=== PATIENT | male | born 1940 ===

== ENCOUNTER 2023-07-04 14:56 | Emergency (ER) | payer MEDICARE, BC, SELFPAY ==
[2023-07-04 15:00] VITALS: BP 136/53
--- NOTE | 2023-07-04 16:15 | ED.GENMED ---
History of Present Illness
General
Chief Complaint: Nose Bleed
Source: patient
Exam Limitations: none
Time Seen by Provider: 07/04/23 15:53
Nursing documentation reviewed up to this point in time: agreed with
Travel History
Have you had any contact with someone who has COVID-19?: No
Do you have any symptoms of coronavirus? Fever > 100 degrees, chills, cough, shortness of breath, sore throat, loss of taste or smell, muscle aches, or headache?: No
History of Present Illness
History of Present Illness:
83 yr old male on Plavix presents to the ED for evaluation of right sided nose bleed since this morning. Pt believes now that nosebleed has stopped. Denies any trauma/injury. He denies any headache lightheadedness dizziness patient is on Aspirin
and Plavix.
reports the patient was started on Plavix again after having a TIA. Patient was admitted June 08 to June 10.
Past History
Past History
ED Past Medical History: Arrthythmia (Exercise-induced V. tach), CAD, CHF, GERD, HTN, Hypercholesterolemia, NIDDM, Hypothyroidism and Other (Multiple pulmonary nodules, moderate obstructive sleep apnea, right internal carotid artery 70% stenosis);
Negative Renal failure (Stage 3A)
ED Past Surgical History: Cardiac (Pacemaker, CABG X 4, Stents, TAVR), Tonsilectomy and Other
Social History
Tobacco: Non-smoker
Alcohol: None
Drug: None
Personal:
Living: with family
Family History
Family History: Other (reviewed and non-contributory)
Review of Systems
Review of Systems
Allergies reviewed?: Yes
Other source history: family
All Other Systems: ROS reviewed and negative except as documented in HPI and ROS
Constitutional: Reports no symptoms; Denies fever, fatigue or chills
EENT: Reports other (epistaxis right sided)
Respiratory: Reports no symptoms
Cardiac: Reports no symptoms
ABD/GI: Reports no symptoms
Musculoskeletal: Reports no symptoms
Skin: Reports no symptoms
Neurological: Reports no symptoms
Psychiatric: Reports no symptoms
Phy Exam
General Physical Exam
General Presentation: no apparent distress
General age: appears stated age
General Skin: warm and dry
General Habitus: normal
General Mental: alert
General Hydration: appears well hydrated
ENT Exam
ENT Exam: other (bright red blood in right nares no active bleeding )
Neurological Exam
Neurological Exam: alert and oriented x3
Musculoskeletal Exam
Musculoskeletal Exam: full ROM
Skin Exam
Skin Exam: normal color and warm/dry
Psychiatric Exam
Psychiatric Exam: normal mood/affect
Course
Vital Signs
Initial and Last Documented VS:
Initial Vital Signs
Temp Pulse Resp BP
98.2 F 63 18 136/53
07/04/23 15:00 07/04/23 15:00 07/04/23 15:00 07/04/23 15:00
Last Documented Vital Signs
Temp Pulse Resp BP
98.2 F 63 18 136/53
07/04/23 15:00 07/04/23 15:00 07/04/23 15:00 07/04/23 15:00
MDM/Problems Addressed
Differential Diagnosis Includes:
Not limited to epistaxis
MDM/Problems Addressed:
Patient has not had any further episodes of bleeding here in the ER. There is no 1 actual spot which was identified as the site of bleeding therefore cauterization was not done. Patient no acute distress well-appearing denies feeling
lightheaded/dizzy. stable vital sings. with no bleeding will DC home. I did review with patient the importance of continuing Plavix and aspirin since he recently had a TIA 2 weeks ago and was admitted for that time. He was instructed on not
blowing his nose how to apply pressure and to return if any worsening of symptoms with ENT follow-up.
*Critical Care Note
Total Time (30-74mins, 75-104mins- exclusive of procedures): Not Applicable
ED Attending Note
-
Portions of this chart may have been created with voice recognition software.� Occasional wrong word or��sound alike� substitutions may have occurred due to the inherent limitations of voice recognition software.
Discharge Plan
Departure
Patient Disposition: Home (Routine Discharge)
Date of Disposition: 07/04/23
Time of Disposition: 17:15
Patient with high blood pressure during this ER visit?: Yes
Condition: Fair
Covid-19: Not Applicable
Discharge Problem:
epistaxis
Instructions: Nosebleeds (DC), BLOOD PRESSURE
Prescriptions:
No Action
nitroglycerin 0.4 MG tablet, sublingual
0.4 mg sublingual [id number] PRN (Reason: chest pain)
ezetimibe 10 MG tablet
10 mg PO QPM
aspirin 81 MG tablet,delayed release (DR/EC)
81 mg PO HS Qty: 0 0RF
isosorbide mononitrate 30 mg Tablet Extended Release 24 Hr
15 mg PO DAILY
famotidine 20 mg Tablet
20 mg PO DAILY
pantoprazole 40 mg Tablet,Delayed Release (Dr/Ec)
40 mg PO HS
docusate sodium 100 mg Capsule
100 mg PO DAILY
albuterol sulfate 90 mcg/actuation Hfa Aerosol Inhaler
2 puff inhalation R Q4HPRN PRN (Reason: SHORTNESS OF BREATH) Qty: 6.7 0RF
metoprolol succinate 25 MG tablet extended release 24 hr
25 mg PO HS Qty: 0 0RF
furosemide 40 mg tablet
20 mg PO DAILY
atorvastatin 40 mg tablet
20 mg PO QPM
triamcinolone acetonide 0.1 % cream
1 applic TOPICAL DAILY PRN (Reason: sores on chest)
levothyroxine [Synthroid] 50 mcg tablet
100 mcg PO CHAVEZ
levothyroxine [Synthroid] 50 mcg tablet
50 mcg PO MOTUWETHFRSA
fluticasone propion-salmeterol [Advair HFA] 230-21 mcg/actuation HFA aerosol inhaler
2 puff inhalation R BID
colchicine 0.6 MG capsule
0.6 mg PO BIDPRN PRN (Reason: gout)
Patient Comments:
pt states he last took this rx in 2019.
clopidogrel [Plavix] 75 mg tablet
75 mg PO DAILY Qty: 18 0RF
Rx Instructions:
STOP AFTER 18 DAYS
Referrals:
NONE,* [Active] -
Tegan Stoner MD [Active] -
Activity Restrictions/Additional Instructions:
As discussed follow-up with clear coat sprayer if needed. Do not blow your nose. If bleeding recurs hold pressure for 10 to 15 minutes at least however if you are unable to stop the bleeding then please return to the ER.
Interventions
Interventions:
*Risk Screen - Suicide Last Done: 07/04/23 15:00
*General Assessment Last Done: 07/04/23 15:00
*Neglect/Abuse Screening Last Done: 07/04/23 15:00
*ED COVID-19 Vaccine History Last Done: 07/04/23 15:00
*Nursing Disposition Last Done: 07/04/23 17:34
ED-EENT Assessment Last Done: 07/04/23 15:45
Discharge Date and Time
Discharge Date/Time: 07/04/23 17:34
== END 2023-07-04 17:34 | disposition home or self-care (01) ==
LOC: EMR 14:56
PROVIDERS: EMERGENCY PHYSICIAN Emergency Medicine; FAMILY PHYSICIAN Family Medicine
DX: R04.0 Epistaxis (principal); I10 Essential (primary) hypertension; Z79.02 Long term (current) use of antithrombotics/antiplatelets
CPT/HCPCS: 99281

== ENCOUNTER → 2023-07-08 14:10 | Outpatient (REF) | payer MEDICARE, BC, SELFPAY | LOC: RAD 14:10 | PROVIDERS: ATTENDING PHYSICIAN Radiology Diagnostic Radiology; FAMILY PHYSICIAN Family Medicine | DX: Z95.0 Presence of cardiac pacemaker (principal) | CPT/HCPCS: 71046 ==

== ENCOUNTER 2023-07-21 18:07 | Emergency (ER) | payer MEDICARE, BC, SELFPAY ==
[2023-07-21 18:12] VITALS: BP 101/70
--- NOTE | 2023-07-21 22:21 | ED.GENMED ---
History of Present Illness
General
Chief Complaint: Nose Bleed
Source: patient and family
Time Seen by Provider: 07/21/23 20:34
Travel History
Have you had any contact with someone who has COVID-19?: No
Do you have any symptoms of coronavirus? Fever > 100 degrees, chills, cough, shortness of breath, sore throat, loss of taste or smell, muscle aches, or headache?: No
History of Present Illness
History of Present Illness:
83-year-old male presents emergency department complaints of nosebleed, from the left nare only, that started around 130 today and has been present on and off since then. He describes applying the clip and now the bleeding has been controlled. He
denies dizziness, chest pain, dyspnea, nausea, vomiting, black stools, gum bleeding, hematemesis, or other complaints. Of note, patient is on aspirin and Plavix given recent neurological events.
Past History
Past History
ED Past Medical History: Arrthythmia (Exercise-induced V. tach), CAD, CHF, GERD, HTN, Hypercholesterolemia, NIDDM, Hypothyroidism and Other (Multiple pulmonary nodules, moderate obstructive sleep apnea, right internal carotid artery 70% stenosis);
Negative Renal failure (Stage 3A)
ED Past Surgical History: Cardiac (Pacemaker, CABG X 4, Stents, TAVR), Tonsilectomy and Other
Social History
Tobacco: Non-smoker
Alcohol: None
Drug: None
Personal:
Living: with family
Family History
Family History: Other (reviewed and non-contributory)
Phy Exam
Physical Exam
Physical Exam:
GENERAL: Alert , in no apparent distress
EYE: pupils equal and reactive
NECK: Supple, no significant adenopathy.
ENT: o/p clr, mmm. R septum nl, no bleeding. L nare with slow ooze (once clip removed), uanble fully visualize septum
CARDIAC: Regular rate and rhythm .
LUNGS: Clear breath sounds bilaterally, no acute respiratory distress, no wheezes/rales/rhonchi
ABDOMEN: Soft, without focal tenderness, no r/g, no cvat
NEUROLOGICAL: Alert and oriented, nonfocal
SKIN: Warm and dry, skin intact.
MUSCULOSKELETAL: No edema, well perfused.
PSYCH: Normal and appropriate interaction.
Course
Vital Signs
Initial and Last Documented VS:
Initial Vital Signs
Temp Pulse Resp BP Pulse Ox
98.4 F 64 18 101/70 94
07/21/23 18:12 07/21/23 18:12 07/21/23 18:12 07/21/23 18:12 07/21/23 18:12
Last Documented Vital Signs
Temp Pulse Resp BP Pulse Ox
98.4 F 60 18 153/76 94
07/21/23 18:12 07/21/23 22:57 07/21/23 18:12 07/21/23 22:57 07/21/23 18:12
*Critical Care Note
Total Time (30-74mins, 75-104mins- exclusive of procedures): Not Applicable
Update Note
Update Note:
Patient presents to the Emergency Department with ___epistaxis
Number and Complexity of Problems Addressed at the Encounter
� Chronic conditions affecting care:
� Acute Exacerbation and/or Progression of Chronic Illness:
� Differential Diagnosis includes: But not limited to anterior epistaxis, posterior epistaxis, medication related bleeding, etc.
Amount and/or Complexity of Data to be Reviewed and Analyzed
� I performed an independent evaluation of and my interpretation is:
EKG:
CT:
Xrays:
Laboratory Studies:
Other:
� Review of other/old records reveals:
� Clinical information was obtained by an independent historian: Son who is at bedside
� Prescriptions/Medications Considered but not given:
� Further testing considered but not performed:
Risk of Complications and/or Morbidity or Mortality of Patient Management
� Social determinants of health affecting care:
� Discussion with other providers (PCP, Hospitalists, Consultants, etc):
� Escalation of care including admission/observation vs risk of discharge considered: Left nare gently packed with a Rhino Rocket, bleeding well-controlled, will discharge with close ENT follow-up. Patient aware of importance of
continuing Plavix and aspirin.
ED Attending Note
-
Portions of this chart may have been created with voice recognition software.� Occasional wrong word or��sound alike� substitutions may have occurred due to the inherent limitations of voice recognition software.
Discharge Plan
Departure
Patient Disposition: Home (Routine Discharge)
Date of Disposition: 07/21/23
Time of Disposition: 22:24
Patient with high blood pressure during this ER visit?: No
Condition: Good
Discharge Problem:
Anterior epistaxis
Instructions: Nosebleeds (DC)
Prescriptions:
New
cephalexin 500 mg capsule
500 mg PO TID Qty: 15 0RF
No Action
nitroglycerin 0.4 MG tablet, sublingual
0.4 mg sublingual [id number] PRN (Reason: chest pain)
ezetimibe 10 MG tablet
10 mg PO QPM
aspirin 81 MG tablet,delayed release (DR/EC)
81 mg PO HS Qty: 0 0RF
isosorbide mononitrate 30 mg Tablet Extended Release 24 Hr
15 mg PO DAILY
famotidine 20 mg Tablet
20 mg PO DAILY
pantoprazole 40 mg Tablet,Delayed Release (Dr/Ec)
40 mg PO HS
docusate sodium 100 mg Capsule
100 mg PO DAILY
albuterol sulfate 90 mcg/actuation Hfa Aerosol Inhaler
2 puff inhalation R Q4HPRN PRN (Reason: SHORTNESS OF BREATH) Qty: 6.7 0RF
metoprolol succinate 25 MG tablet extended release 24 hr
25 mg PO HS Qty: 0 0RF
furosemide 40 mg tablet
20 mg PO DAILY
atorvastatin 40 mg tablet
20 mg PO QPM
triamcinolone acetonide 0.1 % cream
1 applic TOPICAL DAILY PRN (Reason: sores on chest)
levothyroxine [Synthroid] 50 mcg tablet
100 mcg PO CHAVEZ
levothyroxine [Synthroid] 50 mcg tablet
50 mcg PO MOTUWETHFRSA
fluticasone propion-salmeterol [Advair HFA] 230-21 mcg/actuation HFA aerosol inhaler
2 puff inhalation R BID
colchicine 0.6 MG capsule
0.6 mg PO BIDPRN PRN (Reason: gout)
Patient Comments:
pt states he last took this rx in 2019.
clopidogrel [Plavix] 75 mg tablet
75 mg PO DAILY Qty: 18 0RF
Rx Instructions:
STOP AFTER 18 DAYS
Referrals:
Heather Penn DO [Family Provider] -
Tegan Stoner MD [Active] - Follow up in 2-3 days
Activity Restrictions/Additional Instructions:
IF YOU DEVELOP FEVER, CHILLS, BLEEDING, DIZZINESS, CHEST PAIN, TROUBLE BREATHING, OR OTHER WORRISOME SIGNS, GO TO THE ER IMMEDIATELY!
Interventions
Interventions:
*Risk Screen - Suicide Last Done: 07/21/23 18:12
*General Assessment Last Done: 07/21/23 18:12
*Neglect/Abuse Screening Last Done: 07/21/23 18:12
*ED COVID-19 Vaccine History Last Done: 07/21/23 18:12
*Nursing Disposition Last Done: 07/21/23 22:57
ED-EENT Assessment Last Done: 07/21/23 20:22
Discharge Date and Time
Discharge Date/Time: 07/21/23 22:57
[2023-07-21 22:55] VITALS: BP 155/76
[2023-07-21 22:57] VITALS: BP 153/76
== END 2023-07-21 22:57 | disposition home or self-care (01) ==
LOC: EMR 18:07
PROVIDERS: EMERGENCY PHYSICIAN Emergency Medicine; FAMILY PHYSICIAN Family Medicine
DX: R04.0 Epistaxis (principal)
CPT/HCPCS: 99282; 30901

== ENCOUNTER → 2023-07-22 13:09 | Outpatient (REF) | payer MEDICARE, BC, SELFPAY | LOC: MRI 13:09 | PROVIDERS: ATTENDING PHYSICIAN Hospitalist; FAMILY PHYSICIAN Family Medicine; REFERRING PHYSICIAN Student in an Organized Health Care Education/Training Program | DX: G45.9 Transient cerebral ischemic attack, unspecified (principal) | CPT/HCPCS: 70551 ==

== ENCOUNTER 2023-08-14 21:08 | Inpatient (IN) | payer MEDICARE, BC, SELFPAY ==
[2023-08-14 18:09] VITALS: BP 114/51
[2023-08-14 18:12] VITALS: BP 114/51
[2023-08-14 18:24] VITALS: BMI 32.0
[2023-08-14 18:54] LABS: % Basophils 0.3 % (0-2); % Eosinophils 0.3 % (0-6); % Immature Granulocytes 0.5 % (0-0.5); % Lymphocytes 7.2 % (20.5-51.1); % Monocytes 10.5 % (1.7-9.3); % Neutrophils 81.2 % (42.2-75.2); Absolute Basophils 0.1 10^3/uL (0-0.2); Absolute Eosinophils 0.1 10^3/uL (0-0.7); Absolute Immature Granulocytes 0.1 10^3/uL (0-0.05); Absolute Lymphocytes 1.1 10^3/uL (1.2-3.4); Absolute Monocytes 1.6 10^3/uL (0.1-0.6); Absolute Neutrophils 12.3 10^3/uL (1.4-6.5); Hematocrit 31.5 % (39.0-52.0); Mean Corp Hgb Conc. 31.7 g/dL (33.0-37.0); Mean Corpuscular Hgb 31.5 pg (27.0-31.0); Mean Corpuscular Volume 99.4 fL (80.0-94.0); Nucleated Red Blood Cells % 0.1 % (-); Platelet Count 134 10^3/uL (130-400); Red Blood Cell Count 3.17 10^6/uL (4.70-6.10); Red Cell Dist. Width 17.2 % (11.5-14.5); White Blood Cell Count 15.2 10^3/uL (4.8-10.8)
[2023-08-14 19:00] VITALS: BP 92/50
[2023-08-14 19:05] LABS: Lactic Acid 2.6 mmol/L (0.7-2.0)
[2023-08-14 19:09] LABS: ALT (SGPT) 40 U/L (0-50); AST (SGOT) 43 U/L (17-59); Albumin 2.7 g/dl (3.5-5.0); Alkaline Phosphatase 129 U/L (38-126); Blood Urea Nitrogen 53 mg/dl (9-20); Calcium 7.3 mg/dl (8.4-10.2); Carbon Dioxide 20 mmol/L (22-30); Chloride 111 mmol/L (98-107); Estimated Creatinine Clearance 31 ml/min; Glucose 183 mg/dl (70-99); Potassium 4.6 mmol/L (3.5-5.1); Sodium 136 mmol/L (135-145); Total Bilirubin 0.6 mg/dl (0.2-1.3); Total Protein 5.5 g/dl (6.3-8.2)
[2023-08-14 19:19] LABS: Troponin I 0.014 ng/ml
--- NOTE | 2023-08-14 19:20 | ED.CVA ---
History of Present Illness
General
Chief Complaint: CVA/TIA Symptoms
Source: patient, spouse and family
Exam Limitations: none
Time Seen by Provider: 08/14/23 18:12
Nursing documentation reviewed up to this point in time: agreed with
Onset of Stroke Symptoms
Onset of symptoms known: Yes
Date of onset of symptoms: 08/14/23
Travel History
Have you had any contact with someone who has COVID-19?: No
Do you have any symptoms of coronavirus? Fever > 100 degrees, chills, cough, shortness of breath, sore throat, loss of taste or smell, muscle aches, or headache?: No
History of Present Illness
History of Present Illness:
Patient to ED for sudden change in mental status. states she asked him for his ipad but he did not respond. When he tried to answer her his words were garbled. Symptms lasted approx 20 minutes and then he returned to baseline. Denies
headache, dizziness, blurred vision. Had a similar episode in May. He was admitted here for TIA symptoms. Discharged on ASA and plavix. Family states plavix was recently discontinued by cardiology. Had outpatient MRI Jul 22, he has not
received results to date. On arrival to ED he is alert and oriented. temp is 95.1. Bear hugger applied. Pateint/family deny any recent illness. Report poor appetite over the past week.
Past History
Past History
ED Past Medical History: Arrthythmia (Exercise-induced V. tach), CAD, CHF, GERD, HTN, Hypercholesterolemia, NIDDM, Hypothyroidism and Other (Multiple pulmonary nodules, moderate obstructive sleep apnea, right internal carotid artery 70% stenosis);
Negative Renal failure (Stage 3A)
ED Past Surgical History: Cardiac (Pacemaker, CABG X 4, Stents, TAVR), Tonsilectomy and Other
Social History
Tobacco: Non-smoker
Alcohol: None
Drug: None
Personal:
Living: with family
Family History
Family History: Other (reviewed and non-contributory)
Review of Systems
Review of Systems
Allergies reviewed?: Yes
All Other Systems: ROS reviewed and negative except as documented in HPI and ROS
Constitutional: Reports fatigue
EENT: Reports no symptoms
Respiratory: Reports trouble breathing
Cardiac: Reports no symptoms
ABD/GI: Reports anorexia
: Reports no symptoms
Musculoskeletal: Reports no symptoms
Skin: Reports other (pressure blister left buttocks, shearing right buttocks)
Neurological: Reports other (confusion, garbled speech PATTERN MOLDER)
Psychiatric: Reports no symptoms
Phy Exam
General Physical Exam
General Presentation: no apparent distress
General age: appears stated age
General Skin: cool
General Habitus: normal
General Mental: alert
Cardiovascular Exam
Cardiovascular Exam: regular rate/rhythm and no edema
Pulmonary Exam
Pulmonary Exam: decreased breath sounds
Oxygen Status: oxygen 3 liters via NC
Gastrointestinal Exam
Gastrointestinal Exam: normal bowel sounds, non tender and soft
Neurological Exam
Neurological Exam: alert, oriented x3, CN II-XII intact, no motor deficits and no sensory deficits
NIH Stroke Score
Level of Consciousness: 0 - Alert
LOC questions: 0-Answers both correctly
LOC Commands: 0-Performs both correctly
Best Gaze: 0-Normal
Visual [place]: 0=Normal, no visual loss
Facial palsy: 0=Normal, symmetrical
Motor - Right Arm: 0=No drift 10 seconds
Motor - Left Arm: 0=No drift 10 seconds
Motor - Right Le-No drift 5 seconds
Motor - Left Le-No drift 5 seconds
Limb Ataxia: 0-Absent
Sensation: 0-Normal
Best Language: 0-No aphasia
Dysarthria: 0-Normal
Extinction and Inattention: 0-No abnormality
Total Score:: 0
Musculoskeletal Exam
Musculoskeletal Exam: full ROM and neuro vasc intact
Skin Exam
Skin Exam: normal color, no rash and other (cool to touch. SKin breakdown to buttocks (blister on left, shearing on right), no open wounds)
Psychiatric Exam
Psychiatric Exam: normal mood/affect
Course
Orders/Labs/Results
Orders:
Orders
08/14/23 Breakfast
Cholesterol Lowering
Cholesterol Lowering: Sodium, 2 Gram
08/14/23 18:09
EKG [Electrocardiogram (*1)] Urgent
Reason for Study: TIA/Stroke
EKG- Treatment ONCE
08/14/23 18:38
Complete Blood Count/With Diff Urgent
Comprehensive Metabolic Panel Urgent
Lactic Acid Urgent
Blood Culture Urgent
BALJINDER Source: Blood/Venous
Specimen Description:
08/14/23 18:45
CT Head W/o Iv Contrast Urgent
Comment:
Reason For Exam: mental status change
08/14/23 18:47
Troponin I Urgent
08/14/23 19:15
0.9% Sodium Chloride 1000 ml [Nss] 1,000 ml IV BOLUS
08/14/23 19:17
Piperacillin/Tazo 4.5 Gram [Zosyn] 4.5 gram in 100 ml IV NOW
CR Chest - 2 Views Urgent
Comment:
Reason For Exam: change in mental status
08/14/23 19:25
Vancomycin [Vancocin] 1,500 mg 0.9% Sodium Chloride [Nss] 20 ml 0.9% Sodium Chloride 250 ml [Nss] 250 ml IV NOW
08/14/23 20:43
Admit/Transfer Patient As Directed
Co-Sign Provider:
Level of Care: Inpatient admission
Assign to:: Telemetry
Physician / Group: [email or web address]
Diagnosis: SIRS +/_ sepsis , AMS especially language function, Hypothermia
Reason for Telemetry: Other
Other Reason for Telemetry: sepsis
Date to Stop Telemetry: 08/16/23
Time to Stop Telemetry: 11:00
Reason for Hospitalization: SIRS +/_ sepsis , AMS especially language function, Hypothermia
Expected length of stay greater than two midnights?: Yes
ELOS- Estimated Length of Stay in days: 4
I certify the patient meets the requirements for IP care: Yes
08/14/23 20:46
Code Status As Directed
Resuscitation Status: Full Code
08/14/23 22:02
COVID-19 Antigen Routine
Source: Nasal Swab
Urinalysis Reflex To Culture Urgent
Date Specimen was Collected: 08/14/23
Time Specimen was Collected: 21:50
08/14/23 22:17
Lactic Acid Q4H
Comment: repeat q4 hours x 4 or until less than 2 mmol/L
0.9% Sodium Chloride 1000 ml [Nss] 1,000 ml IV 60 mls/hr
Acetaminophen [Tylenol/Feverall] 650 mg RECTAL Q4HPRN PRN
Acetaminophen [Tylenol] 650 mg PO Q4HPRN PRN
Atorvastatin [Lipitor] 10 mg PO HS
Ezetimibe [Zetia] 10 mg PO HS
Triamcinolone Cream [Aristocort/Triamcinolone 0.1% Cream] 0 applic TOPICAL DAILY PRN
VANCOMYCIN Pharmacy to Dose [VANCOCIN Pharmacy to Dose] 1 each Pharmacy To Prepare [Call Pharmacy To Prepare] 0 ml IV PER PROTOCOL
08/14/23 22:17
Case Management Consult ONCE
Case Management Consult: Discharge Planning
Comment: stroke/tia
DIETARY CONSULT Routine
Reason for Consult: stroke/TIA
Dining Chair Seat Cushion Trimmer Urgent
Activity As Directed
Activity Level: With Assistance
Activity As Directed
Activity Level: With Assistance
Intake/ Output As Directed
Frequency: Per unit guidelines
NIH Stroke Scale As Directed
Directions: Per protocol
Comment: every shift and with any change in condition or mental status
Neurological Checks As Directed
Frequency: q4h
Additional Instructions:: q4h x 24h upon admission to the floor, then qshift & with any change in condition
and mental status
Patient Education As Directed
Type: Stroke education packet
Comment: provide to patient and family
Vital Signs As Directed
Frequency: Per unit guidelines
Vital Signs As Directed
Frequency: Per unit guidelines
Weight As Directed
Frequency: Daily
Ot Eval And Treat Routine
Pt Eval And Treat Routine
Activity Level: With Assistance
Speech Therapy Eval & Treat Routine
DX Deep Vein Thrombosis Video Routine
08/15/23 02:00
Piperacillin/Tazo 3.375 Gram [Zosyn] 3.375 gram in 50 ml IV Q6H
08/15/23 02:17
Lactic Acid Q4H
Comment: repeat q4 hours x 4 or until less than 2 mmol/L
08/15/23 06:00
Cardiovascular Evaluation IN AM
Complete Blood Count/No Diff IN AM
Comprehensive Metabolic Panel IN AM
08/15/23 06:17
Lactic Acid Q4H
Comment: repeat q4 hours x 4 or until less than 2 mmol/L
08/15/23 08:00
Fluticasone/Salmeterol 230/21 [Advair Hfa 230/21 Mcg Inhaler] 2 puff INH R BID
Heparin 5,000 units SC Q12
Levothyroxine [Synthroid] 50 mcg PO MOTUWETHFRSA@0800
Pantoprazole [Protonix] 20 mg PO DAILY
08/15/23 10:17
Lactic Acid Q4H
Comment: repeat q4 hours x 4 or until less than 2 mmol/L
08/16/23 08:00
Furosemide [Lasix] 20 mg PO Q48H
08/16/23 11:00
DC Protocol for Telemetry ONCE
08/21/23 08:00
Levothyroxine [Synthroid] 100 mcg PO CHAVEZ@0800
Abnormal Lab Results
08/14/23
18:38
WBC 15.2 H 10^3/uL
(4.8-10.8)
RBC 3.17 L 10^6/uL
(4.70-6.10)
Hgb 10.0 L g/dL
(13.0-18.0)
Hct 31.5 L %
(39.0-52.0)
MCV 99.4 H fL
(80.0-94.0)
MCH 31.5 H pg
(27.0-31.0)
MCHC 31.7 L g/dL
(33.0-37.0)
RDW 17.2 H %
(11.5-14.5)
MPV 13.0 H fL
(7.4-10.4)
Abs Immat Gran (auto) 0.1 H 10^3/uL
(0-0.05)
Absolute Neuts (auto) 12.3 H 10^3/uL
(1.4-6.5)
Absolute Lymphs (auto) 1.1 L 10^3/uL
(1.2-3.4)
Absolute Monos (auto) 1.6 H 10^3/uL
(0.1-0.6)
Neutrophils % 81.2 H %
(42.2-75.2)
Lymphocytes % 7.2 L %
(20.5-51.1)
Monocytes % 10.5 H %
(1.7-9.3)
Chloride 111 H mmol/L
(98-107)
Carbon Dioxide 20 L mmol/L
(22-30)
BUN 53 H mg/dl
(9-20)
Creatinine 2.0 H mg/dL
(0.7-1.3)
Glucose 183 H mg/dl
(70-99)
Lactic Acid 2.6 H mmol/L
(0.7-2.0)
Calcium 7.3 L mg/dl
(8.4-10.2)
Alkaline Phosphatase 129 H U/L
(38-126)
Total Protein 5.5 L g/dl
(6.3-8.2)
Albumin 2.7 L g/dl
(3.5-5.0)
08/14/23 18:38
08/14/23 18:38
Vital Signs
Initial and Last Documented VS:
Initial Vital Signs
Pulse Resp BP
66 19 114/51
08/14/23 18:09 08/14/23 18:09 08/14/23 18:09
Last Documented Vital Signs
Temp Pulse Resp BP Pulse Ox
96.8 F L 82 20 105/54 94
08/14/23 22:45 08/14/23 22:47 08/14/23 22:47 08/14/23 22:47 08/14/23 22:47
*Radiology
Radiology exam reviewed: radiology read reviewed
*Pulse Oximetry
Patient hypoxic: no
*Critical Care Note
Total Time (30-74mins, 75-104mins- exclusive of procedures): Not Applicable
Update Note
Update Note:
Patient to ED for report of confusion, garbled speech x 20 minutes. Here in May for same. On arrival to ED he is alert anc oriented x 3 however hypothermic, hypotensive. Labs reviewed. WBC 15, lactic 2.6 IV fluids, antibiotics started in
dept. WIll admit to hospitalist for sepsis. Unknown source at this time.
ED Attending Note
-
Portions of this chart may have been created with voice recognition software.� Occasional wrong word or��sound alike� substitutions may have occurred due to the inherent limitations of voice recognition software.
Discharge Plan
Departure
Patient Disposition: Admit
Date of Disposition: 08/14/23
Time of Disposition: 19:40
Presentation/result/management discussed w/ accepting MD/DO: Hospitalist
Condition: Fair
Covid-19: Not Applicable
Discharge Problem:
Sepsis
Interventions
Interventions:
*Risk Screen - Suicide Last Done: 08/14/23 18:19
*General Assessment Last Done: 08/14/23 18:19
*Neglect/Abuse Screening Last Done: 08/14/23 18:19
ED- Fall Risk Assessment Last Done: 08/14/23 18:25
*ED COVID-19 Vaccine History Last Done: 08/14/23 18:24
*Nursing Disposition Last Done: 08/14/23 22:19
ED- Pulmonary Assessment Last Done: 08/14/23 18:25
ED- Neurological Assessment Last Done: 08/14/23 18:25
ED- Cardiac Assessment Last Done: 08/14/23 18:25
Discharge Date and Time
Discharge Date/Time: 08/14/23 22:26
[2023-08-14] MEDS: NSS 1000 IV ×2 (19:29→23:30)
[2023-08-14] MEDS: ZOSYN 100 IV (19:29)
[2023-08-14] MEDS: VANCOCIN 300 MG IV (19:37)
[2023-08-14] MEDS: VANCOCIN 300 ML IV (19:37)
--- NOTE | 2023-08-14 20:12 | HPS.HSE ---
Addendum entered and electronically signed by Michael Parker MD 08/15/23 06:50:
Case I dw Vascular Dr Galloway this AM - known patient of Dr Galloway
- Non urgent consult placed
Addendum entered and electronically signed by Michael Parker MD 08/15/23 00:29:
Correction:
Admitted to IP TLM NOT to IMU
Original Note:
Family Physician
-
Family Physician: Heather Penn, DO
Chief Complaint
-
AMS with words salads
History of Present Illness
83M Lt hand dominant HX b/l DIONI Rt > Lt , was on DAPL till 07/22/23 , then Plavix was stopped by [facility] Raf cardilogist at [facility] following MRI report.
Today USOH and watching ball games with .
noted abrupt onset of non sensical to and fro conversation and did not recognize the IPAD in front of him
called Daughter in law Neurologist. She saw her on face time noted NFND
Similar events in Jun this yr- Dxed presumed TIA and DC on DAPL.
P Vas is Dr Galloway for b/l DIONI
He was brought in to ED for evaluation
Medical History
Past Medical History
Past Medical History: Reports Other
Additional Past Medical History:
COPD
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
CAD with stents hypertension
Gastroesophageal reflux disease
Hyperlipidemia
History of carotid stenosis
Type 2 diabetes mellitus
TIA
Past Surgical History: Reports Other
Additional Past Surgical History:
Coronary artery bypass grafting x 5
Pacemaker
Cardiac stents
TAVR
Social History
Tobacco: Non-smoker
Drug: None
Personal:
Living: With Family
Family History
Family History: Not pertinent
Allergies / Home Medications
Allergies reflects when Allergies were last updated in [facility].
Home Medications with original date entered in [facility]
Allergy/Medication List:
Allergies
Allergy/AdvReac Type Severity Reaction Status Date / Time
Iodinated Contrast Media Allergy Severe Hypotension Verified 07/21/23 18:12
bivalirudin [From Angiomax] Allergy Hypotension, Verified 07/21/23 18:12
Rash
rocuronium bromide Allergy Anaphylaxis Verified 07/21/23 18:12
[From Zemuron]
Home Medications
ezetimibe 10 mg tablet 10 mg PO HS High cholesterol 03/26/21
aspirin 81 mg tablet,delayed release 81 mg PO HS Blood clot prevention/tx ##0 03/27/21
docusate sodium 100 mg capsule 100 mg PO DAILY Constipation 02/19/23
famotidine 20 mg tablet 20 mg PO DAILY Gastrointestinal Issue 02/19/23
isosorbide mononitrate 30 mg tablet,extended release 24 hr 30 mg PO DAILY Gout 02/19/23
fluticasone propionate 230 mcg-salmeterol 21 mcg/actuation HFA inhaler (Advair HFA) 2 puff inhalation R BID Lung/Breathing Issues 06/08/23
levothyroxine 50 mcg tablet (Synthroid) 50 mcg PO MOTUWETHFRSA@0800 Thyroid 06/08/23
levothyroxine 50 mcg tablet (Synthroid) 100 mcg PO CHAVEZ@0800 Thyroid 06/08/23
triamcinolone acetonide 0.1 % topical cream 1 applic topical DAILY PRN sores on chest 06/08/23
atorvastatin 20 mg tablet 10 mg PO HS 08/14/23
furosemide 20 mg tablet 20 mg PO Q48H@0800 08/14/23
metoprolol succinate 25 mg tablet,extended release 24 hr 25 mg PO DAILY Heart disease/condition 08/14/23
pantoprazole 20 mg tablet,delayed release 20 mg PO DAILY 08/14/23
peg 400-propylene glycol (PF) 0.4 %-0.3 % eye drops in a dropperette (Systane (PF)) 1 drp BOTH EYES DAILYPRN PRN dry eyes 08/14/23
Review of Systems
-
EENT: Reports No Symptoms
Respiratory: Reports No Symptoms
Cardiac: Reports No Symptoms
Abdomen/GI: Reports No Symptoms
: Reports No Symptoms
Musculoskeletal: Reports No Symptoms
Skin: Reports No Symptoms
Neurological: Reports See HPI and Other (AMS )
Endocrine: Reports No Symptoms
Hematologic/Lymphatic: Reports No Symptoms
Psych: Reports No Symptoms
Physical Exam
Vital Signs
Vital Signs
Temp Pulse Resp BP Pulse Ox
95.1 F L 62 19 114/51 93
08/14/23 18:12 08/14/23 18:12 08/14/23 18:12 08/14/23 18:12 08/14/23 18:12
Physical Exam
General: No Apparent Distress
HEENT: Atraumatic
Respiratory: Clear; No Wheezes, Rales or Rhonchi
Cardiac: S1/S2 and Regular Rhythm
Breast: Deferred by me
GI: Soft, Non Tender and Non Distended
Rectal: Deferred by Provider
Genito-urinary: Deferred by me
Musculoskeletal: Other (cold )
Skin: Other (cool to touch )
Neuro: AO x 3 and Nonfocal/grossly intact; No Slurred Speech or Facial Droop
Psych: Calm
Laboratory Results
-
08/14/23 18:38
08/14/23 18:38
Laboratory Results
Lactic Acid Cancelled 08/14/23 19:14
Total Bilirubin 0.6 mg/dl (0.2-1.3) 08/14/23 18:38
AST 43 U/L (17-59) 08/14/23 18:38
ALT 40 U/L (0-50) 08/14/23 18:38
Alkaline Phosphatase 129 U/L (38-126) H 08/14/23 18:38
Troponin I 0.014 ng/ml 08/14/23 18:47
Impression/Plan
-
Reviewed VS: T 95.1 hypothermia HR 62 soft BP 115/50 93% RA
Data
WCC 15
Hgb 10 - baseline is low 11s - low 12s
Cl 111
CO2 20
Cr 2.0 - baseline is low to mid 2s
eGFR low 30s - baseline is mid 20s c/w CKD4
BG 183
LA 2.6
Alb 2.7
BCx sent
Pending UA
Pending CXR
Pending HCT
EKG report
Atrial-paced rhythm with prolonged AV conduction
LEFT VENTRICULAR HYPERTROPHY WITH REPOLARIZATION ABNORMALITY ( R in aVL ,
[place] product )
INFERIOR INFARCT , AGE UNDETERMINED
ABNORMAL ECG
07/22/23 Brain MRI
1. No MRI evidence for acute infarct.
2. Mild white matter leukoaraiosis in the frontal and parietal lobes.
3. Mild to moderate diffuse cerebral and cerebellar volume loss.
4. Tiny intraparenchymal microhemorrhages in the right middle cerebellar peduncle.
02/21/23 ECHO
EF 45 to 50%
stage I diastolic dysfunction
Last hospitalist admission: 06/08/23 - 06/10/23 DC DXs: TIA, Abn LFTs
ASSESSMENT & PLAN
Presumed SIRS so far. Probably Sepsis in process of working up for source
Associated transient abn speech with word salad
Hypothermia
Marginal hypotension for HX essential HTN control by BB and IMN
- pending UA.
- pending CXR.
- pending HCT
- s/p septic bolus NS 1 L at ER - cont. IVF maintainable
- Rewarming blankets
- Empiric IV vanco and Zosyn
- Held IMN and Metoprolol till BP is acceptable
Abrupt onset of words salads - rapidly resolved - TIA
HX b/l DIONI Rt > Lt
Reviewed recent Brain MRI on 07/22/23 - Tiny intraparenchymal microhemorrhages in the right middle cerebellar peduncle.
- was on DAPL till 07/22/23 , then Plavix was stopped by JACE Carbone cardilogist at [facility] on 07/21/22
- cont. ASA
- cont. hold Plavix till further advise by Vas and Neuro
- Neuro consult
- To consider Vascular Dr Galloway consult in AM
Stable CKD4
- Trend Cr
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
- daily wt
- cont FORMULATION SCIENTIST PO Lasix 20mg q48h
- furosemide continued
Hypothyroidism
- cont. current T4 replacement.
GERD
-PPI
HLD
- cont. FORMULATION SCIENTIST statin
CAD
-cardiac stents
-pacemaker in place
- cont ASA and Statin
COPD
-not in acute exacerbation
- cont Home Nebs
HX AVR
-s/p TAVR
DVT Px: SQH
Code: Dull
IMU
[2023-08-14 21:43] VITALS: BP 100/50
[2023-08-14 22:00] VITALS: BP 90/55
[2023-08-14 22:11] LABS: Urine Albumin Negative (Neg - Trace); Urine Bilirubin Negative (Negative); Urine Character Clear (Clear); Urine Color Straw; Urine Glucose Negative (Negative); Urine Ketone Negative (Negative); Urine Leukocyte Negative (Negative); Urine Nitrite Negative (Negative); Urine Occult Blood Negative (Negative); Urine Specific Gravity 1.015 (<1.030); Urine Urobilinogen Negative (Neg - 1+)
--- NOTE | 2023-08-14 22:15 | PTCARENOTE ---
Pt arrived to unit via stretcher. Pt pulled over to bed. Pt AAOx3 NIH = 0. Lungs w/ crackles at the bases on 2L o2. Occ moist prod cough + brown/blood tinged. Pt w/ large DTI on b/l buttocks. Pt states he sits in recliner. Foam dressing applied to
pt and static overlay applied to bed.
[2023-08-14 22:21] LABS: COVID-19 Antigen Negative (Negative)
--- NOTE | 2023-08-14 22:34 | PHA.VAN.IN ---
Assessment
- Assessment
Renal Function: Appears similar to baseline
Minimum Temperature: 95.1 F
Concomitant Antimicrobials: PIPERACILLIN/TAZOBACTAM
Plan
- Plan
Initial / Loading Dose: VANCO 1500MG X1
Monitoring: RANDOM 08/14 @0600
Pharmacokinetics Vancomycin I
- -
Patient Age: 83
Patient Sex: Male
Vancomycin Day #: 1
Indication: Other
Requesting Provider: DR. JESUS
Height / Weight:
Height 5 ft 9 in
Actual Weight 98.3 kg
Pertinent Past Medical History: COPD, CHF, DM
- Vital Signs / Lab Results
Temp Pulse Resp BP Pulse Ox
95.9 F L 61 21 90/55 93
08/14/23 21:30 08/14/23 22:15 08/14/23 18:30 08/14/23 22:00 08/14/23 22:15
Lab Results - Hematology
08/14/23
18:38
WBC 15.2 H
Lab Results - Chemistry
08/14/23
18:38
BUN 53 H
Creatinine 2.0 H
Estimated Creat Clear 31
Albumin 2.7 L
08/14/23 08/14/23
18:38 19:14
Lactic Acid 2.6 H Cancelled
Lab Results - Urine
08/14/23
22:02
Urine Nitrite (Reflex) Negative
Leukocyte Esterase Rfl Negative
[2023-08-14 22:47] VITALS: BP 105/54
[2023-08-14 22:52] VITALS: BMI 31.8
[2023-08-14 23:26] VITALS: BMI 31.8
[2023-08-14] MEDS: ZETIA 10 MG PO (23:30)
[2023-08-14] MEDS: LIPITOR 10 MG PO (23:30)
[2023-08-15] VITALS (10 sets, daily range): BP systolic 93–111; BP diastolic 47–66; PULSE 63; O2SAT 97; BMI 31.2
[2023-08-15] MEDS: ZOSYN 50 IV ×2 (01:31→08:45)
[2023-08-15] MEDS: ProAmatine 5 MG PO (04:37)
[2023-08-15 06:45] LABS: Hematocrit 27.5 % (39.0-52.0); Hemoglobin 8.6 g/dL (13.0-18.0); Mean Corp Hgb Conc. 31.3 g/dL (33.0-37.0); Mean Corpuscular Volume 99.3 fL (80.0-94.0); Mean Platelet Volume 12.8 fL (7.4-10.4); Platelet Count 121 10^3/uL (130-400); Red Blood Cell Count 2.77 10^6/uL (4.70-6.10); Red Cell Dist. Width 17.2 % (11.5-14.5); White Blood Cell Count 13.1 10^3/uL (4.8-10.8)
[2023-08-15 06:55] LABS: Vancomycin Random 16.9 ug/ml
[2023-08-15 07:06] LABS: ALT (SGPT) 35 U/L (0-50); AST (SGOT) 31 U/L (17-59); Albumin 2.6 g/dl (3.5-5.0); Alkaline Phosphatase 124 U/L (38-126); Blood Urea Nitrogen 56 mg/dl (9-20); Calcium 7.9 mg/dl (8.4-10.2); Carbon Dioxide 25 mmol/L (22-30); Chloride 111 mmol/L (98-107); Estimated Creatinine Clearance 23 ml/min; Glucose 75 mg/dl (70-99); HDL Cholesterol 47 mg/dl; LDL Cholesterol, Calculated 28 mg/dl; Potassium 4.9 mmol/L (3.5-5.1); Sodium 138 mmol/L (135-145); Total Bilirubin 0.6 mg/dl (0.2-1.3); Total Cholesterol 89 mg/dl (50-199); Total Protein 5.2 g/dl (6.3-8.2); Triglyceride 73 mg/dl (10-149); Very Low Density Lipoprotein 14 mg/dl (0-30)
[2023-08-15] MEDS: ADVAIR HFA 230/21 MCG INHALER 2 PUFF INH ×2 (07:18→19:29)
--- NOTE | 2023-08-15 08:20 | PHA.VAN.FU ---
Vancomycin Assessment / Plan
- Assessment
Renal Function: SCR Increasing
WBC's are: Trending Up
Concomitant Antimicrobials: piperacillin/tazobactam
- Assessment - Therapeutic Drug Monitoring
Random Level: 16.9 - drawn ~11H after 1500mg loading dose
- Dosing Plan
Dosing by Level: Re-dose today (Vanc 1000mg)
Dosing Comments: patient may eventually need prolonged interval
- Monitoring Plan
Random Level: 08/15 06
- Follow Up
Pharmacy will continue to follow.
Vancomycin Follow UP
- -
Patient Age: 83
Patient Sex: Male
Vancomycin Day #: 2
Indication: Other
Requesting Provider: Dr. Parker
Pertinent Antimicrobial Allergies:
no pertinent antibiotic allergies
Height / Weight:
Height 5 ft 9 in
Actual Weight 97.551 kg
Pertinent Past Medical History: COPD, CKD, DM, BMI ~31.8
- Vital Signs / Lab Results
Temp Pulse Resp BP Pulse Ox
98.0 F 77 16 110/47 97
08/15/23 07:00 08/15/23 07:23 08/15/23 07:23 08/15/23 07:00 08/15/23 07:23
Lab Results - Hematology
08/14/23 08/15/23
18:38 06:24
WBC 15.2 H 13.1 H
Lab Results - Chemistry
08/14/23 08/15/23
18:38 06:24
BUN 53 H 56 H
Creatinine 2.0 H 2.7 H
Estimated Creat Clear 31 23
Albumin 2.7 L 2.6 L
08/14/23 08/14/23 08/14/23
18:38 19:14 23:20
Lactic Acid 2.6 H Cancelled 1.0
08/15/23 08/15/23 08/15/23
02:17 06:17 10:17
Lactic Acid Cancelled Cancelled Cancelled
Lab Results - Urine
08/14/23
22:02
Urine Nitrite (Reflex) Negative
Leukocyte Esterase Rfl Negative
Therapeutic Drug Monitoring
Random Vancomycin 16.9 ug/ml 08/15/23 06:24
[2023-08-15] MEDS: SYNTHROID 50 MCG PO (08:45)
[2023-08-15] MEDS: HEPARIN 5000 UNITS SC ×2 (08:45→21:11)
[2023-08-15] MEDS: PROTONIX 20 MG PO (08:45)
--- NOTE | 2023-08-15 09:15 | CON.VAS ---
Consultation
Consultation Request
Performing Provider: Nilesh
Reason for Consultation: TIA
Medical History
-
Chief Complaint: Word finding difficulty
History of Present Illness:
83-year-old male well-known to the vascular service admitted to the ER yesterday for possible TIA. Patient states he was watching a show with his last night when he began having 'word salad' per his . He does not remember the event. He
had a similar event in May on last admission. Per his he also had ' curtain covering the right eye' type episode a few months ago which has not recurred. Denies any weakness or numbness, or visual symptoms. Patient was discharged in
May on aspirin and Plavix. Plavix has since been discussed continued by cardiology. Pt is ambidexterous.
Carotid US 06/22- Right ICA stenosis greater than 70%
Brain MRI 07/22/23- No MRI evidence for acute infarct and tiny intraparenchymal microhemorrhages in the right middle cerebellar peduncle.
CT head 08/14/23- negative
Past Medical History
Past Medical History: CAD, CHF, CVA (TIA), HTN, Hypothyroidism, NIDDM, Valvular Disease and Other (hyperlipidemia, )
Past Surgical History: Cardiac (Pacer, TAVR, cardiac bypass, cardiac stents) and Tonsilectomy
Social History
Tobacco: Non-Smoker
Alcohol: None
Drug: None
Personal:
Living: With Family
Employment: Retired
Family History
Family History: Reviewed & Not Pertinent
Allergies / Home Medications
Allergy/AdvReac Type Severity Reaction Status Date / Time
Iodinated Contrast Media Allergy Severe Hypotension Verified 07/21/23 18:12
bivalirudin [From Angiomax] Allergy Hypotension, Verified 07/21/23 18:12
Rash
rocuronium bromide Allergy Anaphylaxis Verified 07/21/23 18:12
[From Zemuron]
Medication Instructions Recorded Confirmed Type
ezetimibe 10 mg tablet 10 mg PO HS High cholesterol 03/26/21 08/14/23 History
aspirin 81 mg tablet,delayed 81 mg PO HS Blood clot 03/27/21 08/14/23 Rx
release prevention/tx ##0
docusate sodium 100 mg capsule 100 mg PO DAILY Constipation 02/19/23 08/14/23 History
famotidine 20 mg tablet 20 mg PO DAILY Gastrointestinal 02/19/23 08/14/23 History
Issue
isosorbide mononitrate 30 mg 30 mg PO DAILY Gout 02/19/23 08/14/23 History
tablet,extended release 24 hr
fluticasone propionate 230 2 puff inhalation R BID 06/08/23 08/14/23 History
mcg-salmeterol 21 mcg/actuation Lung/Breathing Issues
HFA inhaler (Advair HFA)
levothyroxine 50 mcg tablet 50 mcg PO MOTUWETHFRSA@0800 Thyroid 06/08/23 08/14/23 History
(Synthroid)
levothyroxine 50 mcg tablet 100 mcg PO CHAVEZ@0800 Thyroid 06/08/23 08/14/23 History
(Synthroid)
triamcinolone acetonide 0.1 % 1 applic topical DAILY PRN sores 06/08/23 08/14/23 History
topical cream on chest
atorvastatin 20 mg tablet 10 mg PO HS 08/14/23 08/14/23 History
furosemide 20 mg tablet 20 mg PO Q48H@0800 08/14/23 08/14/23 History
metoprolol succinate 25 mg 25 mg PO DAILY Heart 08/14/23 08/14/23 History
tablet,extended release 24 hr disease/condition
pantoprazole 20 mg tablet,delayed 20 mg PO DAILY 08/14/23 08/14/23 History
release
peg 400-propylene glycol (PF) 0.4 1 drp BOTH EYES DAILYPRN PRN dry 08/14/23 08/14/23 History
%-0.3 % eye drops in a dropperette eyes
(Systane (PF))
Review of Systems
-
History Source: Patient
All other systems: Negative unless noted
Constitutional: Reports No Symptoms
EENT: Reports No Symptoms
Respiratory: Reports No Symptoms
Cardiac: Reports No Symptoms
Vascular: Denies Leg Pain / Claudication
Abdomen/GI: Reports No Symptoms
: Reports No Symptoms
Musculoskeletal: Reports No Symptoms
Skin: Reports No Symptoms
Neurological: Reports Other (Word finding difficulty-resolved)
Endocrine: Reports No Symptoms
Physical Exam
Vital Signs
Temp Pulse Resp BP Pulse Ox
98.0 F 77 16 110/47 97
08/15/23 07:00 08/15/23 07:23 08/15/23 07:23 08/15/23 07:00 08/15/23 07:23
Lab Results
08/15/23 06:24
08/15/23 06:24
Troponin I 0.014 ng/ml 08/14/23 18:47
Physical Exam
General: No Apparent Distress
HEENT: Normocephalic and Atraumatic
Respiratory: Non Labored Respirations
Cardiac: Negative JVD
GI: Soft and Non Tender
Musculoskeletal: No Clubbing, No Cyanosis and No Edema
Skin: Warm
Neuro: Awake, Alert, Oriented and Nonfocal/Grossly Intact
Psych: Calm
Assessment / Plan
-
83-year-old male with known carotid disease and recent word finding difficulty episode
Plan/ I did review prior CT angiogram from 2021.� I reviewed his carotid duplexes.� He does have high-grade right carotid artery stenosis.� At this point, with recurrent speech issues this certainly may be causative.� However, the only confounding
factor here is that he has an elevated white blood cell count and concern for pneumonia currently.� (Per his [id number] as well he had had some shortness of breath prior).� Therefore, his symptoms currently may have been infectious/metabolic
related.� In which case managing the carotid artery invasively would be unnecessary.� Would recommend neurology evaluation.� If this is felt to be infectious/metabolic in nature, then would hold off on further carotid workup or management
currently.� If, however, neurology does feel that this was a symptomatic issue, then would consider revascularization while here.� I did discuss that all with him.� I discussed with his [id number] over the phone extensively.
--- NOTE | 2023-08-15 09:29 | CON.NEURO ---
Consultation
Order
Date of Consultation: 08/15/23
Reason for Consult: TIA
CC: none
HPI: This is an 83-year-old ambidexterous man who presented to [facility] on 08/14/2023 with hypotension/hypothermia and transient encephalopathy. Neurology consultation was requested for an evaluation of management of suspected TIA.
According to Ms. Cherry the patient had 20-minute episode of confusion (was unable to answer questions, had poor comprehension, would not follow requests, able to name an apple sauce cup, president). His symptoms lasted around 20 minutes and
followed transient agitation. Mr. Cherry does not recall the events leading to the hospitalization. No reports of headaches, change in vision, strength or sensation
Mr. Cherry was seen by neurology service on June 09, 2023 with transient expressive aphasia and right-sided visual hemineglect. Brain MRI at that time showed no acute infarcts. He was started on Plavix. The later was discontinued due to
recurrent epistaxis requiring the nasal packing.
ER VS: BP 114/51-98/55, HR 66, T 35.1 C.
EKG-paced rhythm
Labs: WBC�15.2, hemoglobin�10.0, creatinine�2.7, normal lactic acid, normal sodium, urinalysis, negative SARS�COVID 2, glucose-75, LDL�28.
CT head-no acute infarcts
CXR-Moderate airspace opacity in the perihilar left upper and lower lobes.
PMH: >70% R ICA stenosis, TIA, �V. tach, CAD, HTN, DM, hypothyroidism, CKD, COPD, GERD, JAS, pulmonary nodules, achromatopsia, ambulatory dysfunction
PSH: PPM, CABG, TAVR, tonsillectomy
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
FH: not contributory to current presenting
All: Iodine, Rocuronium, Bivalirudin, Plavix-epistaxis
ROS:Constitutional: Negative. Negative for chills, fever and unexpected weight change.
HEENT: positive for dysphonia
Eyes: positive for color blindness
Respiratory: positive for dyspnea, cough
Cardiovascular: Negative for chest pain, palpitations and leg swelling.
Gastrointestinal: Negative for abdominal pain and vomiting.
Endocrine: Negative. Negative for cold intolerance.
Genitourinary: Negative for dysuria, flank pain and urgency.
Musculoskeletal: positive for chronic back pain
Skin: Negative for rash.
Allergic/Immunologic: Negative. Negative for immunocompromised state.
Neurological: positive for transient language dysfunction, forgetfulness
Psychiatric/Behavioral: Negative for behavioral problems, confusion and hallucinations.
General: Well developed. In no acute distress.
Cardio: Regular rate and rhythm without murmur. Extremities are without cyanosis or edema.
Neuro:
Mental Status: Alert, oriented to person, place, and date. Mildly impaired attention. Good fund of knowledge. Follows complex requests across the midline. Comprehension, naming, and repetition intact. No hemineglect.
Cranial Nerves: Pupils are equally round and reactive to light. EOMs full. Visual donaldson full to confrontation. No ptosis. No nystagmus. V1-V3 intact to light touch and pinprick bilaterally, symmetric. Face symmetric. Impaired hearing AU.
The palate elevated well. SCMs and traps 5/5. Tongue midline. No dysarthria. Mod dysphonia
Motor: Normal bulk and tone. No pronator or arm drift. Strength 5/5 throughout. No clonus.
Reflexes: 1+ throughout the upper extremities and knees. Plantar responses flexor bilaterally.
Sensory: Normal proprioception at the toes
Coordination: No dysmetria or tremor.
Gait: deferred
Assessment and Plan:
I. Recurrent spells, rule out seizures
II. Severe R ICA stenosis, likely asymptomatic
III. Mild encephalopathy(infections, vascular)
-Telemetry monitoring
-Avoid hypoxia, cerebral hypoperfusion in view of severe right ICA stenosis
-Continue ASA 81mg QD
-Brain MRI wo kenzie
-Routine EEG
-DVT prophylaxis
I personally reviewed all radiology and labs along with past medical records pertinent to current medical problems. Total time spent in patient care is 60 minutes.
Thank you for allowing us to participate in the care of this patient. We will continue to follow. Please do not hesitate to contact us with any questions or concerns.
Subjective/Objective
Subjective Data
Date of Service: August 15, 2023
Objective Data
Vital Signs
Temp Pulse Resp BP Pulse Ox
36.7 C 77 16 110/47 97
08/15/23 07:00 08/15/23 07:23 08/15/23 07:23 08/15/23 07:00 08/15/23 07:23
Lab Results
08/15/23 06:24
08/15/23 06:24
Sodium 138 mmol/L (135-145) 08/15/23 06:24
Potassium 4.9 mmol/L (3.5-5.1) 08/15/23 06:24
BUN 56 mg/dl (9-20) H 08/15/23 06:24
Glucose 75 mg/dl (70-99) 08/15/23 06:24
Calcium 7.9 mg/dl (8.4-10.2) L 08/15/23 06:24
LDL Cholesterol, Calc 28 mg/dl 08/15/23 06:24
Patient Allergies
Iodinated Contrast Media Allergy (Severe, Verified 07/21/23 18:12)
Hypotension
bivalirudin [From Angiomax] Allergy (Verified 07/21/23 18:12)
Hypotension, Rash
rocuronium bromide [From Zemuron] Allergy (Verified 07/21/23 18:12)
Anaphylaxis
Medications
-
Active Medications
Generic Name Dose Route Start Last Admin
Trade Name Freq PRN Reason Stop Dose Admin
Acetaminophen 650 mg 08/14/23 22:17
Acetaminophen 325 Mg Tablet PO 09/11/23 22:16
Q4HPRN PRN
MARIEE/mild pain/temp > 100.4 F
Acetaminophen 650 mg 08/14/23 22:17
Acetaminophen 650 Mg Rectal Suppository RECTAL 09/11/23 22:16
Q4HPRN PRN
MARIEE/ mild pain/ temp >/= 100.4F
Atorvastatin Calcium 10 mg 08/14/23 22:17 08/14/23 23:30
Atorvastatin (Lipitor) 20 Mg Tablet PO 09/11/23 22:16 10 mg
HS DAVID Administration
Ezetimibe 10 mg 08/14/23 22:17 08/14/23 23:30
Ezetimibe (Zetia) 10 Mg Tablet PO 09/11/23 22:16 10 mg
HS DAVID Administration
Furosemide 20 mg 08/16/23 08:00
Furosemide 20 Mg Tablet PO 09/13/23 07:59
Q48H DAVID
Heparin Sodium 5,000 units 08/15/23 08:00 08/15/23 08:45
Heparin 5,000 Units/Ml 1 Ml Vial SC 09/12/23 07:59 5,000 units
Q12 DAVID Administration
Vancomycin HCl 1 each/ Device 0 mls @ 0 mls/hr 08/14/23 22:17
IV
PER PROTOCOL DAVID
As Directed
Piperacillin Sod/Tazobactam Sod 3.375 gram in 50 mls @ 100 mls/hr 08/15/23 02:00 08/15/23 08:45
Zosyn IV 50 mls
Q6H DAVID Administration
Sodium Chloride 1,000 mls @ 60 mls/hr 08/14/23 22:17 08/14/23 23:30
Nss IV 1,000 mls
[id number] DAVID Administration
Vancomycin HCl 1 gram in 200 mls @ 200 mls/hr 08/15/23 12:00
Vancocin IV 08/15/23 12:59
ONCE ONE
Levothyroxine Sodium 100 mcg 08/21/23 08:00
Levothyroxine 50 Mcg Tablet PO 09/18/23 07:59
CHAVEZ@0800 DAVID
Levothyroxine Sodium 50 mcg 08/15/23 08:00 08/15/23 08:45
Levothyroxine 50 Mcg Tablet PO 09/12/23 07:59 50 mcg
MOTUWETHFRSA@0800 DAVID Administration
Midodrine 5 mg 08/15/23 04:07
Midodrine 5 Mg Tablet PO 09/12/23 04:06
Q4HPRN PRN
sbp<95
Pantoprazole Sodium 20 mg 08/15/23 08:00 08/15/23 08:45
Pantoprazole 20 Mg Delayed Release Tablet PO 09/12/23 07:59 20 mg
DAILY DAVID Administration
Fluticasone/Salmeterol 2 puff 08/15/23 08:00 08/15/23 07:18
Advair Hfa 230/21 Inhaler INH 09/12/23 07:59 2 puff
R BID DAVID Administration
Protocol
Sodium Chloride 0 flush 08/14/23 23:00
Sodium Chloride 0.9% (Flush) Syringe IV 09/11/23 22:59
PER PROTOCOL DAVID
Triamcinolone Acetonide 0 applic 08/14/23 22:17
Tramcinolone Acetonide 0.1% (Cream) 15 Gram Tube TOPICAL 09/11/23 22:16
DAILY PRN
sores on chest
Home Medications
Medication Instructions Recorded
ezetimibe 10 mg tablet 10 mg PO HS High cholesterol 03/26/21
aspirin 81 mg tablet,delayed 81 mg PO HS Blood clot 03/27/21
release prevention/tx ##0
docusate sodium 100 mg capsule 100 mg PO DAILY Constipation 02/19/23
famotidine 20 mg tablet 20 mg PO DAILY Gastrointestinal 02/19/23
Issue
isosorbide mononitrate 30 mg 30 mg PO DAILY Gout 02/19/23
tablet,extended release 24 hr
fluticasone propionate 230 2 puff inhalation R BID 06/08/23
mcg-salmeterol 21 mcg/actuation Lung/Breathing Issues
HFA inhaler (Advair HFA)
levothyroxine 50 mcg tablet 50 mcg PO MOTUWETHFRSA@0800 Thyroid 06/08/23
(Synthroid)
levothyroxine 50 mcg tablet 100 mcg PO CHAVEZ@0800 Thyroid 06/08/23
(Synthroid)
triamcinolone acetonide 0.1 % 1 applic topical DAILY PRN sores 06/08/23
topical cream on chest
atorvastatin 20 mg tablet 10 mg PO HS 08/14/23
furosemide 20 mg tablet 20 mg PO Q48H@0800 08/14/23
metoprolol succinate 25 mg 25 mg PO DAILY Heart 08/14/23
tablet,extended release 24 hr disease/condition
pantoprazole 20 mg tablet,delayed 20 mg PO DAILY 08/14/23
release
peg 400-propylene glycol (PF) 0.4 1 drp BOTH EYES DAILYPRN PRN dry 08/14/23
%-0.3 % eye drops in a dropperette eyes
(Systane (PF))
Vital Signs and Labs
-
Vital Signs and Labs:
Vital Signs
Temp Pulse Resp BP Pulse Ox
36.7 C 77 16 110/47 97
08/15/23 07:00 08/15/23 07:23 08/15/23 07:23 08/15/23 07:00 08/15/23 07:23
Lab Results
08/15/23 06:24
08/15/23 06:24
Sodium 138 mmol/L (135-145) 08/15/23 06:24
Potassium 4.9 mmol/L (3.5-5.1) 08/15/23 06:24
BUN 56 mg/dl (9-20) H 08/15/23 06:24
Glucose 75 mg/dl (70-99) 08/15/23 06:24
Calcium 7.9 mg/dl (8.4-10.2) L 08/15/23 06:24
LDL Cholesterol, Calc 28 mg/dl 08/15/23 06:24
Home Medications
-
Home Medications
ezetimibe 10 mg tablet 10 mg PO HS High cholesterol 03/26/21
aspirin 81 mg tablet,delayed release 81 mg PO HS Blood clot prevention/tx ##0 03/27/21
docusate sodium 100 mg capsule 100 mg PO DAILY Constipation 02/19/23
famotidine 20 mg tablet 20 mg PO DAILY Gastrointestinal Issue 02/19/23
isosorbide mononitrate 30 mg tablet,extended release 24 hr 30 mg PO DAILY Gout 02/19/23
fluticasone propionate 230 mcg-salmeterol 21 mcg/actuation HFA inhaler (Advair HFA) 2 puff inhalation R BID Lung/Breathing Issues 06/08/23
levothyroxine 50 mcg tablet (Synthroid) 50 mcg PO MOTUWETHFRSA@0800 Thyroid 06/08/23
levothyroxine 50 mcg tablet (Synthroid) 100 mcg PO CHAVEZ@0800 Thyroid 06/08/23
triamcinolone acetonide 0.1 % topical cream 1 applic topical DAILY PRN sores on chest 06/08/23
atorvastatin 20 mg tablet 10 mg PO HS 08/14/23
furosemide 20 mg tablet 20 mg PO Q48H@0800 08/14/23
metoprolol succinate 25 mg tablet,extended release 24 hr 25 mg PO DAILY Heart disease/condition 08/14/23
pantoprazole 20 mg tablet,delayed release 20 mg PO DAILY 08/14/23
peg 400-propylene glycol (PF) 0.4 %-0.3 % eye drops in a dropperette (Systane (PF)) 1 drp BOTH EYES DAILYPRN PRN dry eyes 08/14/23
Medications
-
Medications:
Generic Name Dose Route Start Last Admin
Trade Name Freq PRN Reason Stop Dose Admin
Acetaminophen 650 mg 08/14/23 22:17
Acetaminophen 325 Mg Tablet PO 09/11/23 22:16
Q4HPRN PRN
MARIEE/mild pain/temp > 100.4 F
Acetaminophen 650 mg 08/14/23 22:17
Acetaminophen 650 Mg Rectal Suppository RECTAL 09/11/23 22:16
Q4HPRN PRN
MARIEE/ mild pain/ temp >/= 100.4F
Atorvastatin Calcium 10 mg 08/14/23 22:17 08/14/23 23:30
Atorvastatin (Lipitor) 20 Mg Tablet PO 09/11/23 22:16 10 mg
HS DAVID Administration
Ezetimibe 10 mg 08/14/23 22:17 08/14/23 23:30
Ezetimibe (Zetia) 10 Mg Tablet PO 09/11/23 22:16 10 mg
HS DAVID Administration
Furosemide 20 mg 08/16/23 08:00
Furosemide 20 Mg Tablet PO 09/13/23 07:59
Q48H DAVID
Heparin Sodium 5,000 units 08/15/23 08:00 08/15/23 08:45
Heparin 5,000 Units/Ml 1 Ml Vial SC 09/12/23 07:59 5,000 units
Q12 DAVID Administration
Vancomycin HCl 1 each/ Device 0 mls @ 0 mls/hr 08/14/23 22:17
IV
PER PROTOCOL DAVID
As Directed
Piperacillin Sod/Tazobactam Sod 3.375 gram in 50 mls @ 100 mls/hr 08/15/23 02:00 08/15/23 08:45
Zosyn IV 50 mls
Q6H DAVID Administration
Sodium Chloride 1,000 mls @ 60 mls/hr 08/14/23 22:17 08/14/23 23:30
Nss IV 1,000 mls
[id number] DAVID Administration
Vancomycin HCl 1 gram in 200 mls @ 200 mls/hr 08/15/23 12:00
Vancocin IV 08/15/23 12:59
ONCE ONE
Levothyroxine Sodium 100 mcg 08/21/23 08:00
Levothyroxine 50 Mcg Tablet PO 09/18/23 07:59
CHAVEZ@0800 DAVID
Levothyroxine Sodium 50 mcg 08/15/23 08:00 08/15/23 08:45
Levothyroxine 50 Mcg Tablet PO 09/12/23 07:59 50 mcg
MOTUWETHFRSA@0800 DAVID Administration
Midodrine 5 mg 08/15/23 04:07
Midodrine 5 Mg Tablet PO 09/12/23 04:06
Q4HPRN PRN
sbp<95
Pantoprazole Sodium 20 mg 08/15/23 08:00 08/15/23 08:45
Pantoprazole 20 Mg Delayed Release Tablet PO 09/12/23 07:59 20 mg
DAILY DAVID Administration
Fluticasone/Salmeterol 2 puff 08/15/23 08:00 08/15/23 07:18
Advair Hfa 230/21 Inhaler INH 09/12/23 07:59 2 puff
R BID DAVID Administration
Protocol
Sodium Chloride 0 flush 08/14/23 23:00
Sodium Chloride 0.9% (Flush) Syringe IV 09/11/23 22:59
PER PROTOCOL DAVID
Triamcinolone Acetonide 0 applic 08/14/23 22:17
Tramcinolone Acetonide 0.1% (Cream) 15 Gram Tube TOPICAL 09/11/23 22:16
DAILY PRN
sores on chest
--- NOTE | 2023-08-15 09:43 | PTCARENOTE ---
pt aaox3. states no pain or sob. does have productive cough producing thick [place]. breath sounds crackles course at bases. nihs done with hand potter nurse. no deficits noted. nc2l.
--- NOTE | 2023-08-15 09:46 | PTOTSP ---
Speech Therapy Swallowing Assessment
Oral/pharyngeal swallow deemed within functional limits. Baseline cough with phlegm production appears related to current pneumonia.
Recommend
1. Continue with regular solids and thin liquids
2. Meds whole in applesauce as needed.
3. Upright with meals
4. Upright for 30 minutes after meals given history of reflux
ST will follow up to ensure diet tolerance/need for instrumental testing.
--- NOTE | 2023-08-15 10:42 | W.PN.HOSP.TC ---
Today's Communication/Plan
-
Consolidate antibiotics
Bladder scan
Stop furosemide
Neurology consult
Vascular surgery consult
PT/OT
Wean oxygen as able
Assessment / Plan
Assessment / Plan
Gen-AAOx3, NAD
HEENT-NC, AT, anicteric, clear oral mm
Neck-supple
CV-reg, no M, +S1/S2
Lungs-Rales at bases bilaterally
Abd-soft, NT, ND
Ext-no edema
Musculoskeletal-no cyanosis, clubbing
Skin-warm and dry
Neuro-grossly non-focal
Psych-calm, cooperative
Acute hypoxic respiratory insufficiency -currently on 2 L nasal cannula oxygen. Etiology possibly related to left-sided pneumonia. Baseline apparently also has COPD. Chest x-ray shows moderate airspace opacity in the perihilar left upper and left
lower lobes. She sees pulmonary as an outpatient, Dr. Acosta. Not on oxygen at home.
Sepsis -presumably due to left-sided pneumonia. On broad-spectrum antibiotics currently, will consolidate to antibiotics for community-acquired pneumonia. Check sputum culture. Blood cultures pending. Lactic acidosis resolved. Bicarbonate
improved. Hypothermia resolved.
Transient dysarthria -rule out TIA versus stroke. Awaiting neurology input. Plavix recently discontinued by cardiology several weeks ago.
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 Stop furosemide, hold antihypertensives. Creatinine up from 2.0-2.7 today. Check bladder scan. Consult nephrology if renal function worsens.
Right ICA stenosis - greater than 70% on ultrasound May 2023. Vascular surgery consulted.
Hypothyroidism - continue Synthroid.
Macrocytic anemia -subacute to chronic. Etiology unclear. Hemoglobin 8.6 today. Check anemia labs.
Thrombocytopenia -intermittent. Etiology unclear.
CAD/stents/CABG x 5
Chronic combined systolic/diastolic heart failure
COPD without exacerbation
Hyperlipidemia
TAVR
Pacemaker
Full code
Anticipated Discharge: > 48 hours
Subjective/Interval History
-
Date of Service: August 15, 2023
Patient seen and examined. Complaining of cough, dyspnea on exertion prior to admission.
Objective Data
-
Labs:
Laboratory Results
08/15/23
06:24
WBC 13.1 H
Hgb 8.6 L
Hct 27.5 L
Plt Count 121 L
Sodium 138
Potassium 4.9
Chloride 111 H
Carbon Dioxide 25
BUN 56 H
Creatinine 2.7 H
Glucose 75
Calcium 7.9 L
Total Bilirubin 0.6
AST 31
ALT 35
Alkaline Phosphatase 124
Vital Signs:
Vital Signs
Temp Pulse Resp BP Pulse Ox
98.0 F 77 16 110/47 97
08/15/23 07:00 08/15/23 07:23 08/15/23 07:23 08/15/23 07:00 08/15/23 07:23
I&O
08/14/23 08/15/23 08/16/23
06:59 06:59 06:59
Intake Total 480 / 480
Balance 480 / 480
Review of Systems
-
History Source: Patient
All other systems: Reviewed and negative
--- NOTE | 2023-08-15 11:41 | WOUNDNOTE ---
BUTTOCKS, BLANCHABLE PURPLE
--- NOTE | 2023-08-15 11:45 | WOUNDNOTE ---
WON MILY note: Patient admitted with Sepsis.
See H&P for complete history. Patient lives with his . He sleeps in a recliner chair.
PMH:TIA,CAD, HTN, GERD, carotid stenosis, DM, CKD3b, CABG, pacer, cardiac stents, TAVR, obesity.
Wound Location and type/assessment: Patient known to service, last seen 06/09/23 for Bilateral buttocks DTI vs deep dermal stage 2 pressure injury. With assist from nurse Jonel turned patient to sides, patient complains of chronic upper back pain
causing difficulty turning. Buttocks is chronic blanchable purple with small intact serous filled blister L buttock, closer to gluteal cleft. Patient confirmed he has an offloading cushion at home, does not recall the brand but uses it in recliner
chair. Patient stated he has not slept in a bed since 1992 when he had his heart surgery. Heels are intact. Independent at home but some days uses a walker. For buttocks he uses Ceravie moisturizer, is continent.
Appetite: Good.
Pressure redistribution devices in place: On Air overlay, called [facility] for [facility] air bed since does not tolerated staying on his side for too long d/t shoulder and neck pain.
Plan: Silicone border foam changed on L buttock, Calazime to remainder of buttocks. Applied foams to heels. Instructed patient pressure ulcer prevention measures and importance of off loading. Air chair cushion in use for recliner chair. Instructed
patient to take air chair cushion when discharged.
Will confirm orders with hospitalist and discussed with MILY Remy.
Care plan to be updated and will follow as needed.
Note to case management of equipment requested for discharge: None.
--- NOTE | 2023-08-15 11:52 | W.PN.UPDATE ---
Update Note
Progress Note Update
Seen and examined with ZEYNEP Schulte. Full consultation to follow. 83-year-old male known well to me for known carotid stenosis (right side greater than 70%). When I last saw him in the office a couple months ago he had been prior seen in the ""hospital with speech dysarthria/expressive aphasia type symptoms. Per the neurologist note, he was felt to be asymptomatic due to right carotid narrowing, and speech symptoms (presumably opposite hemisphere). However what concerns me is when I
spoke to the patient in the office he noted to me that he is ambidextrous and he might even think his left hand is more efficient than his right. In that case his speech dominance could be right hemispheric. He already had MRI scheduled, and
therefore I recommended continuing with the MRI and continue with his dual antiplatelet until the MRI was complete. He did complete his MRI which did not show any infarct. He now presents to the hospital with similar symptoms. I spoke to his
[id number]-asr who is a neurologist who was on FaceTime with him at the time of the event, and she notes that he did have word salad like difficulty speaking. He also though had some confusion where he was coherently saying things but somewhat
confused. Workup here had demonstrated elevated white blood cell count and concern for potential pneumonia. He currently is without any symptoms. He is able to speak fluently to me. He denies any other symptoms of unilateral visual loss or
unilateral numbness or weakness.
On exam/he is awake and alert. Head is normocephalic and atraumatic. Eyes are anicteric. Neck is soft without jugular venous distention. Breathing is unlabored. Neurologically moves all extremities with good strength bilateral upper and lower
extremities. Speech is fluent.
Plan/ I did review prior CT angiogram from 2021. I reviewed his carotid duplexes. He does have high-grade right carotid artery stenosis. At this point, with recurrent speech issues this certainly may be causative. However, the only confounding
factor here is that he has an elevated white blood cell count and concern for pneumonia currently. (Per his [id number] as well he had had some shortness of breath prior). Therefore, his symptoms currently may have been infectious/metabolic
related. In which case managing the carotid artery invasively would be unnecessary. Would recommend neurology evaluation. If this is felt to be infectious/metabolic in nature, then would hold off on further carotid workup or management currently.
If, however, neurology does feel that this was a symptomatic issue, then would consider revascularization while here. I did discuss that all with him. I discussed with his [id number] over the phone extensively.
[2023-08-15] MEDS: ZITHROMAX 500 MG PO (12:07)
[2023-08-15] MEDS: ROCEPHIN 1000 MG IV (12:08)
[2023-08-15] MEDS: STERILE WATER FOR INJECTION 10 ML IV (12:45)
[2023-08-15] MEDS: FLOMAX 0.400000000000000022 MG PO (14:12)
--- NOTE | 2023-08-15 16:03 | W.PN.UPDATE ---
Update Note
Progress Note Update
Discussed case with attending neurologist Dr. Gamino. She feels likely that the patient's right carotid stenosis is asymptomatic. She feels more likely infectious/metabolic etiology here for the patient's recent symptoms. Therefore we will hold
off on any right carotid revascularization at this time. We will be available in the future if needed. Otherwise he can see me in the office and usual follow-up.
[2023-08-15] MEDS: NSS 1000 IV (17:27)
[2023-08-15] MEDS: ZETIA 10 MG PO (21:11)
[2023-08-15] MEDS: LIPITOR 10 MG PO (21:11)
[2023-08-16 03:24] VITALS: BP 114/60
[2023-08-16 06:00] VITALS: BMI 30.9
[2023-08-16] MEDS: ADVAIR HFA 230/21 MCG INHALER 2 PUFF INH ×2 (07:36→19:39)
--- NOTE | 2023-08-16 07:37 | EEGC.RPT ---
Continuous EEG Report
Recording
Start Date of Data Reviewed: 08/15/23
End Date of Data Reviewed: 08/15/23
Done with Video Recording: Yes
Study Sequence: Initiation of Study
Report
TECHNICAL REMARKS:� This is a technically satisfactory eighteen channel record employing 21 disc electrodes applied according to a measured international 10-20 electrode placement system.� There were no significant technical difficulties.� The study
was done on a [employer] System.
CLINICAL HISTORY: This is an 83 year old man with recurrent spells of confusion. This study was requested to look for epileptiform abnormalities.
MEDICATION: no AED
STUDY DURATION: 23 min, 41 secs
�
REPORT:� At the onset of the EEG, the patient is awake. The background activity consists of 9.5-10.5 Hz, persistent, posteriorly dominant, moderate amplitude, symmetric and rhythmic activity that is reactive to eye-opening. Anteriorly, it consists
of a mixture of low voltage indeterminate activity and 20-25 Hz, persistent, low amplitude, symmetric and rhythmic activity.� Stepwise intermittent photic stimulation (1-31 Hz) does not induce any abnormalities. Hyperventilation was not performed.
Drowsiness is characterized by low amplitude mixed frequency activity, decreased eye blinking, and muscle artifact.
�
�IMPRESSION:� This is a normal awake and drowsy EEG. There is no evidence of focal slowing or epileptiform activity.� A normal EEG does not rule out epilepsy. If the clinical picture warrants, a sleep-deprived awake and sleep record may be helpful.
�
[2023-08-16 07:40] VITALS: BP 101/61
[2023-08-16] MEDS: ZITHROMAX 500 MG PO (08:08)
[2023-08-16] MEDS: PROTONIX 20 MG PO (08:09)
[2023-08-16] MEDS: SYNTHROID 50 MCG PO (08:09)
[2023-08-16] MEDS: FLOMAX 0.400000000000000022 MG PO (08:09)
[2023-08-16] MEDS: HEPARIN 5000 UNITS SC ×2 (08:10→21:11)
--- NOTE | 2023-08-16 09:23 | W.PN.NEURO.1 ---
Today's Communication / Plan
-
.
Subjective/Objective
Subjective Data
Date of Service: August 16, 2023
24h events: Intermittently hypotensive down to 90/55 and hypothermic down to 35.7 C.No reports of recurrent language dysfunction.
Brain MRI -pending
Labs: WBC 15.2-13.1, Hb 10-8.6, Pl 143-121, C 2.0-2.7.
Routine EEG(08/15/2023)-normal awake and drowsy recording.
Tele-paced rythm.
PMH: >70% R ICA stenosis, TIA, �V. tach, CAD, HTN, DM, hypothyroidism, CKD, COPD, GERD, JAS, pulmonary nodules, achromatopsia, ambulatory dysfunction
PSH: PPM, CABG, TAVR, tonsillectomy
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
FH: not contributory to current presenting
All: Iodine, Rocuronium, Bivalirudin, Plavix-epistaxis
ROS:Constitutional: Negative. Negative for chills, fever and unexpected weight change.
HEENT: positive for dysphonia
Eyes: positive for color blindness
Respiratory: positive for dyspnea, cough
Cardiovascular: Negative for chest pain, palpitations and leg swelling.
Gastrointestinal: Negative for abdominal pain and vomiting.
Endocrine: Negative. Negative for cold intolerance.
Genitourinary: Negative for dysuria, flank pain and urgency.
Musculoskeletal: positive for chronic back pain
Skin: Negative for rash.
Allergic/Immunologic: Negative. Negative for immunocompromised state.
Neurological: positive for transient language dysfunction, forgetfulness
Psychiatric/Behavioral: Negative for behavioral problems, confusion and hallucinations.
�
�
General: Well developed. In no acute distress.
Cardio: Regular rate and rhythm without murmur. Extremities are without cyanosis or edema.
Neuro:
Mental Status: Alert, oriented to person, place, and date.� Mildly impaired attention.� Good fund of knowledge. Follows complex requests across the midline.� Comprehension, naming, and repetition intact. No hemineglect.
Cranial Nerves: Pupils are equally round and reactive to light.� EOMs full.� Visual donaldson full to confrontation.� No ptosis.� No nystagmus.� V1-V3 intact to light touch and pinprick bilaterally, symmetric.� Face symmetric.� Impaired hearing AU.�
The palate elevated well.� SCMs and traps 5/5.� Tongue midline.� No dysarthria. Mod dysphonia
Motor:� � � � Normal bulk and tone.� No pronator or arm drift.� Strength 5/5 throughout. No clonus.
Reflexes: � � � � � � 1+ throughout the upper extremities and knees.� Plantar responses flexor bilaterally.
Sensory: � � Normal proprioception at the toes
Coordination: No dysmetria or tremor.�
Gait: � � � � � deferred
Assessment and Plan:
�
�I.�Multifactorial encephalopathy(infectious, vascular)
II. Severe R ICA stenosis
III. H/o TIA(05/2023)
-Telemetry monitoring
-Avoid hypoxia, cerebral hypoperfusion in view of severe right ICA stenosis
-Continue ASA 81 mg QD with close platelet monitoring
-Brain MRI wo kenzie
-DVT prophylaxis
-The case was discussed with patient's spouse and daughter- in-law over the phone.
I personally reviewed all radiology and labs along with past medical records pertinent to current medical problems. Total time spent in patient care is 35 minutes.
�
Thank you for allowing us to participate in the care of this patient. We will continue to follow. Please do not hesitate to contact us with any questions or concerns.
�
Objective Data
Vital Signs
Temp Pulse Resp BP Pulse Ox
36.4 C 82 18 101/61 962
08/16/23 07:40 08/16/23 07:40 08/16/23 07:45 08/16/23 07:40 08/16/23 07:38
Lab Results
08/15/23 06:24
08/15/23 06:24
Sodium 138 mmol/L (135-145) 08/15/23 06:24
Potassium 4.9 mmol/L (3.5-5.1) 08/15/23 06:24
BUN 56 mg/dl (9-20) H 08/15/23 06:24
Glucose 75 mg/dl (70-99) 08/15/23 06:24
Calcium 7.9 mg/dl (8.4-10.2) L 08/15/23 06:24
LDL Cholesterol, Calc 28 mg/dl 08/15/23 06:24
Patient Allergies
Iodinated Contrast Media Allergy (Severe, Verified 07/21/23 18:12)
Hypotension
bivalirudin [From Angiomax] Allergy (Verified 07/21/23 18:12)
Hypotension, Rash
rocuronium bromide [From Zemuron] Allergy (Verified 07/21/23 18:12)
Anaphylaxis
--- NOTE | 2023-08-16 10:27 | W.PN.HOSP.TC ---
Addendum entered and electronically signed by Nirav Marshall DO 08/16/23 13:07:
Severe sepsis due to community-acquired pneumonia with associated acute hypoxic respiratory insufficiency.
Original Note:
Today's Communication/Plan
-
Await labs
Brain MRI
PT/OT
Assessment / Plan
Assessment / Plan
Gen-AAOx3, NAD
HEENT-NC, AT, anicteric, clear oral mm
Neck-supple
CV-reg, no M, +S1/S2
Lungs-Rales at bases bilaterally
Abd-soft, NT, ND
Ext-no edema
Musculoskeletal-no cyanosis, clubbing
Skin-warm and dry
Neuro-grossly non-focal
Psych-calm, cooperative
Acute hypoxic respiratory insufficiency -oxygenation improved, now on room air. Etiology possibly related to left-sided pneumonia. Baseline apparently also has COPD. Chest x-ray shows moderate airspace opacity in the perihilar left upper and left
lower lobes. She sees pulmonary as an outpatient, Dr. Acosta. Not on oxygen at home.
Sepsis -presumably due to left-sided pneumonia. Clinically improving. Continue current antibiotics.. Check sputum culture. Blood cultures negative so far. Lactic acidosis resolved. Bicarbonate improved. Hypothermia resolved. Check urinary
antigens. Check sputum culture.
Transient dysarthria -rule out TIA versus stroke. Awaiting neurology input. Plavix recently discontinued by cardiology several weeks ago. Await brain MRI.
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 Stop furosemide, hold antihypertensives. Creatinine up from 2.0-2.7 today. Labs pending for today. Bladder scan showed 205 cc. Tamsulosin started.
Right ICA stenosis - greater than 70% on ultrasound May 2023. Vascular surgery consulted. Neurology feels the ICA stenosis is asymptomatic and therefore vascular surgery has decided to follow-up as outpatient.
Hypothyroidism - continue Synthroid.
Macrocytic anemia -subacute to chronic. Etiology unclear. Hemoglobin 8.6. Check anemia labs.
Thrombocytopenia -intermittent. Etiology unclear.
CAD/stents/CABG x 5
Chronic combined systolic/diastolic heart failure
COPD without exacerbation
Hyperlipidemia
TAVR
Pacemaker
Full code
Dispo -SNF versus home pending progress.
Anticipated Discharge: Within 24 hours
Subjective/Interval History
-
Date of Service: August 16, 2023
Patient seen and examined. Eating breakfast. No complaints.
Objective Data
-
Labs:
Laboratory Results
08/16/23
10:17
WBC Pending
Hgb Pending
Hct Pending
Plt Count Pending
Sodium Pending
Potassium Pending
Chloride Pending
Carbon Dioxide Pending
BUN Pending
Creatinine Pending
Glucose Pending
Calcium Pending
Vital Signs:
Vital Signs
Temp Pulse Resp BP Pulse Ox
97.6 F 82 18 101/61 962
08/16/23 07:40 08/16/23 07:40 08/16/23 07:45 08/16/23 07:40 08/16/23 07:38
I&O
08/15/23 08/16/23 08/17/23
06:59 06:59 06:59
Intake Total 1140 / 1140
Output Total 900 / 900
Balance 240 / 240
Review of Systems
-
History Source: Patient
All other systems: Reviewed and negative
[2023-08-16 10:36] LABS: % Basophils 0.3 % (0-2); % Immature Granulocytes 0.9 % (0-0.5); % Lymphocytes 21.1 % (20.5-51.1); % Monocytes 12.5 % (1.7-9.3); % Neutrophils 64.2 % (42.2-75.2); Absolute Eosinophils 0.1 10^3/uL (0-0.7); Absolute Immature Granulocytes 0.1 10^3/uL (0-0.05); Absolute Lymphocytes 1.9 10^3/uL (1.2-3.4); Absolute Monocytes 1.2 10^3/uL (0.1-0.6); Absolute Neutrophils 5.9 10^3/uL (1.4-6.5); Hematocrit 29.7 % (39.0-52.0); Hemoglobin 9.2 g/dL (13.0-18.0); Mean Corpuscular Hgb 31.9 pg (27.0-31.0); Mean Corpuscular Volume 103.1 fL (80.0-94.0); Mean Platelet Volume 12.4 fL (7.4-10.4); Nucleated Red Blood Cells % 0.5 % (-); Platelet Count 118 10^3/uL (130-400); Red Blood Cell Count 2.88 10^6/uL (4.70-6.10); Red Cell Dist. Width 17.3 % (11.5-14.5); White Blood Cell Count 9.2 10^3/uL (4.8-10.8)
[2023-08-16 10:55] LABS: Blood Urea Nitrogen 59 mg/dl (9-20); Calcium 8.8 mg/dl (8.4-10.2); Carbon Dioxide 24 mmol/L (22-30); Chloride 108 mmol/L (98-107); Estimated Creatinine Clearance 22 ml/min; Glucose 94 mg/dl (70-99); Iron 56 ug/dl (49-181); Potassium 5.3 mmol/L (3.5-5.1); Sodium 140 mmol/L (135-145); eGFR 21.44
[2023-08-16 11:02] VITALS: BP 103/60
[2023-08-16 11:05] LABS: Percent Saturation 14 % (20-50); Total Iron Binding Capacity 387 ug/dl (261-462)
[2023-08-16] MEDS: ROCEPHIN 1000 MG IV (11:20)
[2023-08-16] MEDS: STERILE WATER FOR INJECTION 10 ML IV (11:20)
[2023-08-16 12:13] LABS: Folate 4.9 ng/ml (2.76-20); Vitamin B12 709 pg/ml (239-931)
--- NOTE | 2023-08-16 12:32 | PN.CDI ---
CDI
- -
CDI:
Physician Documentation Request
Admit Date: 08/14/23 21:08
Dear Doctor Rolando,
Patient presented to ED with transient dyarthria
Patient diagnosis with sepsis presumably due to left sided pneumonia.
Lactic acid 08/13 2.6
08/14 vascular update note states 'Discussed case with attending neurologist Dr. Gamino.....She feels more likely infectious/metabolic etiology here for the patient's recent symptoms. '
Please clarify which of the following most accurately describes the status of the patient's infection:
Sepsis only
- Systemic manifestations of infection, with 2 or more SIRS criteria which include:
- Fever >100.4 degrees F or hypothermia < 96.8 degrees F
- Leukocytosis - WBC > 12,000 or leukopenia - WBC < 4,000 or > 10% bands
- Tachycardia > 90 beats per minute
- Tachypnea - RR > 20 breaths per minute or PaCO2 , 32mmHg
Source: Merck Manual 2013
Severe Sepsis
- Sepsis with associated acute organ dysfunction, such as renal or respiratory failure
- Documentation should indicate the association between the sepsis and the organ dysfunction
Other
Use of terms such as suspected, likely, concern for, or probable (associated with a specific diagnosis that is being evaluated, monitored, or treated as if it exists) are acceptable and can be coded in the inpatient setting, when documented at the
time of discharge.
Thank you,
Renee Chavez RN, BSN
CDI Specialist
tiger text
Please use your independent medical judgment in providing your response.
--- NOTE | 2023-08-16 13:18 | CM ---
Reviewed chart, met with patient and his who was at bedside to obtain information for assessment. Patient stated that he lives with his in a two story home with one step to enter and a full flight once inside. There is also a step from the
living room to the kitchen. Patient denied any challenges with the steps inside of his house.
Patient described himself as independent with bathing, dressing, personal care, and ambulates with a rollator. 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 They have hired someone to come in to help with the cleaning.
Patient expressed that he has grab bars in the shower, a rollator, a w/c and a cane. He does not have o2.
Patient has never been to a SNF before. He has not had VN in the past.
He has a prescription plan and uses the [facility] in [place] for all of his medications.
His PCP is Heather Harris DO.
Patient's stated that she feels that patient would benefit from having VN services at home and selected . Will ask for order and send referral. He does not feel that he will need a SNF. He may need o2 so will watch for o2 needs.
Plan: Case management will continue to follow and assist with discharge planning. Home with VN services and potentially new o2.
--- NOTE | 2023-08-16 13:40 | W.CON.NEPH ---
Consultation
-
Date/Time Consultation Requested: August 16, 2023 at 1:30 PM
Date/Time Consultation Performed: August 16, 2023 140PM
Requesting Provider: Rolando
Performing Provider: Keon
Reason for Consultation: OSVALDO
Medical History
-
Chief Complaint: Acute kidney injury
History of Present Illness:
The patient is a 83-year-old male with a past medical history of chronic kidney disease stage IV with a baseline creatinine of 2.5 as of 06/22, dyslipidemia on statin therapy and tamsulosin in the setting of his BPH. He presented with acute hypoxic
respiratory failure in the setting of suspected left pneumonia. During his presentation he also had transient dysarthria and was ruled out for TIA. He was also noted to have change of mental status on presentation. Over the course of his
admission his creatinine is gone from 2-2.8 and we were consulted for acute kidney injury.
Past Medical History
CKD 4 (2.5)
COPD
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
CAD with stents� hypertension
Gastroesophageal reflux disease
Hyperlipidemia
History of carotid stenosis
Type 2 diabetes mellitus
TIA
Past Surgical History: Reports Other
Additional Past Surgical History:
Coronary artery bypass grafting x 5
Pacemaker
Cardiac stents
TAVR
Social History
Tobacco: Non-Smoker
Alcohol: None
Drug: None
Family History
no ckd
Allergies / Home Medications
Allergy/AdvReac Type Severity Reaction Status Date / Time
Iodinated Contrast Media Allergy Severe Hypotension Verified 07/21/23 18:12
bivalirudin [From Angiomax] Allergy Hypotension, Verified 07/21/23 18:12
Rash
rocuronium bromide Allergy Anaphylaxis Verified 07/21/23 18:12
[From Zemuron]
Medication Instructions Recorded Confirmed Type
ezetimibe 10 mg tablet 10 mg PO HS High cholesterol 03/26/21 08/14/23 History
aspirin 81 mg tablet,delayed 81 mg PO HS Blood clot 03/27/21 08/14/23 Rx
release prevention/tx ##0
docusate sodium 100 mg capsule 100 mg PO DAILY Constipation 02/19/23 08/14/23 History
famotidine 20 mg tablet 20 mg PO DAILY Gastrointestinal 02/19/23 08/14/23 History
Issue
isosorbide mononitrate 30 mg 30 mg PO DAILY Heart 02/19/23 08/14/23 History
tablet,extended release 24 hr Disease/Condition
fluticasone propionate 230 2 puff inhalation R BID 06/08/23 08/14/23 History
mcg-salmeterol 21 mcg/actuation Lung/Breathing Issues
HFA inhaler (Advair HFA)
levothyroxine 50 mcg tablet 50 mcg PO MOTUWETHFRSA@0800 Thyroid 06/08/23 08/14/23 History
(Synthroid)
levothyroxine 50 mcg tablet 100 mcg PO CHAVEZ@0800 Thyroid 06/08/23 08/14/23 History
(Synthroid)
triamcinolone acetonide 0.1 % 1 applic topical DAILY PRN sores 06/08/23 08/14/23 History
topical cream on chest
atorvastatin 20 mg tablet 10 mg PO HS High Cholesterol 08/14/23 08/14/23 History
furosemide 20 mg tablet 20 mg PO Q48H@0800 Fluid 08/14/23 08/14/23 History
Retention/Swelling
metoprolol succinate 25 mg 25 mg PO DAILY Heart 08/14/23 08/14/23 History
tablet,extended release 24 hr disease/condition
pantoprazole 20 mg tablet,delayed 20 mg PO DAILY Gastrointestinal 08/14/23 08/14/23 History
release Issue
peg 400-propylene glycol (PF) 0.4 1 drp BOTH EYES DAILYPRN PRN dry 08/14/23 08/14/23 History
%-0.3 % eye drops in a dropperette eyes
(Systane (PF))
Review of Systems
-
History Source: Patient
All other systems: Negative unless noted
Constitutional: Fatigue
EENT: No Symptoms
Respiratory: Other (some sob with RAMIREZ)
Cardiac: No Symptoms
Abdomen/GI: No Symptoms
: No Symptoms
Musculoskeletal: No Symptoms
Skin: No Symptoms
Neurological: Other (some dysarthria)
Endocrine: No Symptoms
Hematologic/Lymphatic: No Symptoms
Physical Exam
Vital Signs
Vital Signs
Temp Pulse Resp BP Pulse Ox
97.6 F 83 18 103/60 96
08/16/23 11:02 08/16/23 11:02 08/16/23 11:02 08/16/23 11:02 08/16/23 11:02
Lab Results
08/16/23 10:17
08/16/23 10:17
WBC 9.2 10^3/uL (4.8-10.8) 08/16/23 10:17
RBC 2.88 10^6/uL (4.70-6.10) L 08/16/23 10:17
Hgb 9.2 g/dL (13.0-18.0) L 08/16/23 10:17
Hct 29.7 % (39.0-52.0) L 08/16/23 10:17
Plt Count 118 10^3/uL (130-400) L 08/16/23 10:17
Sodium 140 mmol/L (135-145) 08/16/23 10:17
Potassium 5.3 mmol/L (3.5-5.1) H 08/16/23 10:17
Chloride 108 mmol/L (98-107) H 08/16/23 10:17
Carbon Dioxide 24 mmol/L (22-30) 08/16/23 10:17
BUN 59 mg/dl (9-20) H 08/16/23 10:17
Creatinine 2.8 mg/dL (0.7-1.3) H 08/16/23 10:17
eGFR 21.44 08/16/23 10:17
Glucose 94 mg/dl (70-99) 08/16/23 10:17
Calcium 8.8 mg/dl (8.4-10.2) 08/16/23 10:17
Albumin 2.6 g/dl (3.5-5.0) L 08/15/23 06:24
Physical Exam
General: AOx3
HEENT: PERRL, EOMI, Anicteric, Conjunctivae Clear, Ear/Nose Intact, Oropharynx Clear/Moist, Neck Supple, Trachea Midline, No JVD and No Thyromegaly
Respiratory: Rhonchi, Normal Excursion and Other (Decreased breath sounds to the bases with dry crackles)
Cardiac: Regular Rate/Rhythm
Breast: Deferred by me
Abdomen: Soft, Nontender, Nondistended, Normal Bowel Sounds and No Hepatosplenomegaly
Rectal: Deferred by Provider
Genito-urinary: No Costovertebral Tender
Musculoskeletal: No Clubbing, No Cyanosis and Edema (+1 pretibial edema)
Skin: No Rash
Neuro: CN II-XII and Strength (5 out of 5 in both upper and lower EXTR)
Hematologic/Lymphatic: No Cervical Lymphadenopathy, No Submandibular Lymphadenopathy and No Supraclavicular Lymphadenopathy
Psych: Mood/afflect pleasant
Assessment/Plan
-
Impression:
Acute kidney injury
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
Hypoxia on admission
sepsis/left PNA
TIA
COPD
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
CAD with stents/CABG
HTN
Gastroesophageal reflux disease
Hyperlipidemia
History of carotid stenosis
Type 2 diabetes mellitus
TIA
Hypothyroidism
Right ICA stenosis
History of TAVR and pacemaker
Plan:
OSVALDO
-Likely prerenal in mediated in setting of hypotension with associated sepsis
-Check postvoid bladder scan to assess for obstructive component given history of BPH
-Furosemide currently held
-Urinalysis reviewed from August 13 completely bland
Data Reviewed
-
Radiology: Image Personally Visualized and interpreted (Chest x-ray personally reviewed left lower lung opacity sternal wires)
Medical Tests (Nuc Med, Echo etc): Other (EKG report reviewed atrial paced rhythm LVH inferior infarct)
Labs: Labs Reviewed by me (Basic metabolic panel reviewed by me)
Old Records: Reviewed (Reviewed previous creatinine of 2.5 from May 2023 in chart)
[2023-08-16 15:45] VITALS: BP 108/64
[2023-08-16 17:05] VITALS: BP 129/54; BP 94/49; PULSE 74; PULSE 82; O2SAT 97
[2023-08-16 19:20] VITALS: BP 129/59
[2023-08-16] MEDS: ZETIA 10 MG PO (21:11)
[2023-08-16] MEDS: LIPITOR 10 MG PO (21:12)
[2023-08-17] VITALS (8 sets, daily range): BP systolic 75–142; BP diastolic 51–82; PULSE 53–66; O2SAT 96; BMI 31.1
[2023-08-17 06:20] LABS: % Basophils 0.2 % (0-2); % Eosinophils 1.4 % (0-6); % Immature Granulocytes 0.9 % (0-0.5); % Lymphocytes 24.7 % (20.5-51.1); % Monocytes 16.6 % (1.7-9.3); % Neutrophils 56.2 % (42.2-75.2); Absolute Eosinophils 0.1 10^3/uL (0-0.7); Absolute Immature Granulocytes 0.1 10^3/uL (0-0.05); Absolute Lymphocytes 2.2 10^3/uL (1.2-3.4); Absolute Monocytes 1.5 10^3/uL (0.1-0.6); Absolute Neutrophils 4.9 10^3/uL (1.4-6.5); Hematocrit 27.9 % (39.0-52.0); Hemoglobin 8.4 g/dL (13.0-18.0); Mean Corp Hgb Conc. 30.1 g/dL (33.0-37.0); Mean Corpuscular Hgb 31.5 pg (27.0-31.0); Mean Corpuscular Volume 104.5 fL (80.0-94.0); Mean Platelet Volume 12.9 fL (7.4-10.4); Nucleated Red Blood Cells % 0.2 % (-); Platelet Count 111 10^3/uL (130-400); Red Blood Cell Count 2.67 10^6/uL (4.70-6.10); Red Cell Dist. Width 17.3 % (11.5-14.5); White Blood Cell Count 8.7 10^3/uL (4.8-10.8)
[2023-08-17 06:46] LABS: Blood Urea Nitrogen 52 mg/dl (9-20); Calcium 8.8 mg/dl (8.4-10.2); Carbon Dioxide 25 mmol/L (22-30); Chloride 110 mmol/L (98-107); Estimated Creatinine Clearance 25 ml/min; Glucose 102 mg/dl (70-99); Potassium 5.1 mmol/L (3.5-5.1); Sodium 138 mmol/L (135-145); eGFR 24.56
[2023-08-17] MEDS: ADVAIR HFA 230/21 MCG INHALER 2 PUFF INH ×2 (08:00→19:23)
--- NOTE | 2023-08-17 08:16 | W.PN.NEURO.1 ---
Documented by User: Lashonda Ch NP 08/17/23 09:45
Today's Communication / Plan
-
.
Neuro Assessment/Plan
Assessment
Brain MRI -pending
Routine EEG(08/15/2023)-normal awake and drowsy recording.
I.�Multifactorial encephalopathy(infectious, vascular)
II. Severe R ICA stenosis
III. H/o TIA(05/2023)
Plan
-MRI brain noncontrast scheduled for today.
-Continue aspirin 81mg daily with close platelet monitoring.
-Telemetry monitoring.
-Avoid hypoxia and cerebral hypoperfusion in view of severe right ICA stenosis.
-Infection workup/treatment per primary team.
-Check orthostatic vital signs.
-NIHSS and neurological checks per unit guidelines.
-LDL goal <70. LDL is 28. Continue home atorvastatin 10mg and ezetimibe 10mg daily.
-Goal normoglycemia, hbA1c is 6.0.
-PT/OT/ST evaluations.
-DVT prophylaxis.
-Will follow pending results.
Subjective/Objective
Subjective Data
Date of Service: August 17, 2023
No acute events overnight. Patient denies any headache, vision changes, speech/swallowing difficulty, nausea, numbness, weakness, chest pain, palpitations, and shortness of breath. He reports intermittent light-headedness with standing/walking.
Objective Data
Vital Signs
Temp Pulse Resp BP Pulse Ox
97.2 F 66 18 119/62 98
08/17/23 07:00 08/17/23 08:04 08/17/23 08:04 08/17/23 07:00 08/17/23 08:04
Lab Results
08/17/23 05:58
08/17/23 05:58
Sodium 138 mmol/L (135-145) 08/17/23 05:58
Potassium 5.1 mmol/L (3.5-5.1) 08/17/23 05:58
BUN 52 mg/dl (9-20) H 08/17/23 05:58
Glucose 102 mg/dl (70-99) H 08/17/23 05:58
Calcium 8.8 mg/dl (8.4-10.2) 08/17/23 05:58
LDL Cholesterol, Calc 28 mg/dl 08/15/23 06:24
Vitamin B12 709 pg/ml (239-931) 08/16/23 10:17
Patient Allergies
Iodinated Contrast Media Allergy (Severe, Verified 07/21/23 18:12)
Hypotension
bivalirudin [From Angiomax] Allergy (Verified 07/21/23 18:12)
Hypotension, Rash
rocuronium bromide [From Zemuron] Allergy (Verified 07/21/23 18:12)
Anaphylaxis
LDL Level: <70, continue statin
Review of Systems
-
History Source: Patient
EENT: Negative Blurry Vision, Decreased Vision or Swallowing Difficulty
Respiratory: Negative Cough or Trouble Breathing
Abdomen/GI: Negative Nausea
Neuro: Dizzy; Negative Headache, Weakness, Numbness, Ataxia or Speech Problem
Physical Exam
-
General: No Apparent Distress
Eyes: No Ptosis and PERRLA
HEENT: Normocephalic and Atraumatic
Neck: Full Range of Motion
Respiratory: No Dyspnea
GI: Non-distended
Skin: Other (PVD discoloration BLE)
Extremities: No Clubbing, No Cyanosis and No Edema
Extended Neurological Exam
Mood & Affect: Mood Unremarkable and Affect Unremarkable
Attention Span & Concentration: Awake, Alert and Interactive
Memory: Unremarkable (AAOx3) and Able to Recall
Tremor: Hand Tremor Absent and Head Tremor Absent
Involuntary Movement: None
Speech: Quality Unremarkable, Quantity Unremarkable and Rate of Production Unremarkable
Cranial Nerve II: Left Eye: Pupillary Reactivity Unremarkable, Pupillary Size Unremarkable and Visual Merida Intact
Cranial Nerve II: Right Eye: Pupillary Reactivity Unremarkable, Pupillary Size Unremarkable and Visual Merida Intact
Cranial Nerves III, IV, : Extraocular Movement: Extraocular Movement Full in all Directions
Cranial Nerve V: Facial Sensation: Intact to Light Touch
Cranial Nerve VII: Facial Symmetry: Normal Facial Symmetry
Cranial Nerve VIII: Hearing: Unremarkable Hearing to Normal Conversational Volume
Cranial Nerves IX, X: Palate Movement: Palate Elevation Symmetric
Cranial Nerve XI: Shoulder Shrug: Unremarkable
Cranial Nerve XII: Tongue Protusion: Midline
Muscle Strength, Overall: Full Throughout
Muscle Bulk & Tone: Bulk Unremarkable and Tone Unremarkable
Pronator Drift: No Drift in Upper Extremities and No Drift in Lower Extremities
Cold Sensation: Reduced Mildly Distally
Vibration Sensation: Reduced Mildly Distally
Touch Sensation: Double Simultaneous Stimulation Unremarkable
Coordination: [id number] Testing Unremarkable
Babinski Sign: Absent Bilaterally
Medications
-
Active Medications
Generic Name Dose Route Start Last Admin
Trade Name Freq PRN Reason Stop Dose Admin
Acetaminophen 650 mg 08/14/23 22:17
Acetaminophen 325 Mg Tablet PO 09/11/23 22:16
Q4HPRN PRN
MARIEE/mild pain/temp > 100.4 F
Acetaminophen 650 mg 08/14/23 22:17
Acetaminophen 650 Mg Rectal Suppository RECTAL 09/11/23 22:16
Q4HPRN PRN
MARIEE/ mild pain/ temp >/= 100.4F
Atorvastatin Calcium 10 mg 08/16/23 22:00 08/16/23 21:12
Atorvastatin (Lipitor) 10 Mg Tablet PO 09/13/23 21:59 10 mg
HS DAVID Administration
Azithromycin 500 mg 08/15/23 11:00 08/16/23 08:08
Azithromycin 250 Mg Tablet PO 500 mg
DAILY DAVID Administration
Ceftriaxone Sodium 1,000 mg 08/15/23 12:00 08/16/23 11:20
Ceftriaxone 1000 Mg / 10 Ml Vial IV 1,000 mg
Q24H DAVID Administration
Ezetimibe 10 mg 08/14/23 22:17 08/16/23 21:11
Ezetimibe (Zetia) 10 Mg Tablet PO 09/11/23 22:16 10 mg
HS DAVID Administration
Heparin Sodium 5,000 units 08/15/23 08:00 08/16/23 21:11
Heparin 5,000 Units/Ml 1 Ml Vial SC 09/12/23 07:59 5,000 units
Q12 DAVID Administration
Levothyroxine Sodium 100 mcg 08/21/23 08:00
Levothyroxine 50 Mcg Tablet PO 09/18/23 07:59
CHAVEZ@0800 DAVID
Levothyroxine Sodium 50 mcg 08/15/23 08:00 08/16/23 08:09
Levothyroxine 50 Mcg Tablet PO 09/12/23 07:59 50 mcg
MOTUWETHFRSA@0800 DAVID Administration
Midodrine 5 mg 08/15/23 04:07
Midodrine 5 Mg Tablet PO 09/12/23 04:06
Q4HPRN PRN
sbp<95
Pantoprazole Sodium 20 mg 08/15/23 08:00 08/16/23 08:09
Pantoprazole 20 Mg Delayed Release Tablet PO 09/12/23 07:59 20 mg
DAILY DAVID Administration
Fluticasone/Salmeterol 2 puff 08/15/23 08:00 08/17/23 08:00
Advair Hfa 230/21 Inhaler INH 09/12/23 07:59 2 puff
R BID DAVID Administration
Protocol
Sodium Chloride 0 flush 08/14/23 23:00
Sodium Chloride 0.9% (Flush) Syringe IV 09/11/23 22:59
PER PROTOCOL DAVID
Sterile Water 10 ml 08/15/23 12:00 08/16/23 11:20
Sterile Water For Injection 10 Ml Vial IV 09/12/23 11:59 10 ml
Q24H DAVID Administration
Tamsulosin HCl 0.4 mg 08/15/23 14:00 08/16/23 08:09
Tamsulosin 0.4 Mg Capsule PO 09/12/23 13:59 0.4 mg
DAILY DAVID Administration
Triamcinolone Acetonide 0 applic 08/14/23 22:17
Tramcinolone Acetonide 0.1% (Cream) 15 Gram Tube TOPICAL 09/11/23 22:16
DAILY PRN
sores on chest
Home Medications
Medication Instructions Recorded
ezetimibe 10 mg tablet 10 mg PO HS High cholesterol 03/26/21
aspirin 81 mg tablet,delayed 81 mg PO HS Blood clot 03/27/21
release prevention/tx ##0
docusate sodium 100 mg capsule 100 mg PO DAILY Constipation 02/19/23
famotidine 20 mg tablet 20 mg PO DAILY Gastrointestinal 02/19/23
Issue
isosorbide mononitrate 30 mg 30 mg PO DAILY Heart 02/19/23
tablet,extended release 24 hr Disease/Condition
fluticasone propionate 230 2 puff inhalation R BID 06/08/23
mcg-salmeterol 21 mcg/actuation Lung/Breathing Issues
HFA inhaler (Advair HFA)
levothyroxine 50 mcg tablet 50 mcg PO MOTUWETHFRSA@0800 Thyroid 06/08/23
(Synthroid)
levothyroxine 50 mcg tablet 100 mcg PO CHAVEZ@0800 Thyroid 06/08/23
(Synthroid)
triamcinolone acetonide 0.1 % 1 applic topical DAILY PRN sores 06/08/23
topical cream on chest
atorvastatin 20 mg tablet 10 mg PO HS High Cholesterol 08/14/23
furosemide 20 mg tablet 20 mg PO Q48H@0800 Fluid 08/14/23
Retention/Swelling
metoprolol succinate 25 mg 25 mg PO DAILY Heart 08/14/23
tablet,extended release 24 hr disease/condition
pantoprazole 20 mg tablet,delayed 20 mg PO DAILY Gastrointestinal 08/14/23
release Issue
peg 400-propylene glycol (PF) 0.4 1 drp BOTH EYES DAILYPRN PRN dry 08/14/23
%-0.3 % eye drops in a dropperette eyes
(Systane (PF))
NIH Stroke Score
Subsequent NIH Scale
Date of Subsequent NIH Scale: 08/17/23
Time of Subsequent NIH Scale: 08:30
NIH Stroke Score
Level of Consciousness: 0 - Alert
LOC Questions: 0-Answers both correctly
LOC Commands: 0-Performs both correctly
Best Horizontal Gaze: 0-Normal
Visual Merida: 0=Normal, no visual loss
Facial Palsy: 0=Normal, symmetrical
Motor - Right Arm: 0=No drift 10 seconds
Motor - Left Arm: 0=No drift 10 seconds
Motor - Right Le-No drift 5 seconds
Motor - Left Le-No drift 5 seconds
Limb Ataxia: 0-Absent
Sensation: 0-Normal
Best Language: 0-No aphasia
Dysarthria: 0-Normal
Extinction and Inattention: 0-No abnormality
Total Score:: 0
Modified Bergheim (mRS) Score
Modified Bergheim Scale (mRS): No symptoms
Score: 0

Documented by User: Teresa Gamino MD 08/17/23 13:42
Neuro Assessment/Plan
Assessment
Brain MRI wo kenzie(08/17/2023)-no acute infarcts
Routine EEG(08/15/2023)-normal awake and drowsy recording.
I.�Multifactorial encephalopathy(infectious, vascular)
II. Severe R ICA stenosis
III. H/o TIA(05/2023)
Plan
-Continue aspirin 81mg daily with close platelet monitoring.
-Avoid cerebral hypoperfusion in view of severe right ICA stenosis.
-Infection workup/treatment per primary team.
-Check orthostatic vital signs.
-LDL goal <70.
-Outpatient neurology follow-up in 2 to
-Please recall neurology services any questions or concerns.
NIH Stroke Score
NIH Stroke Score
Total Score:: 0
Modified Bergheim (mRS) Score
Score: 0
[2023-08-17] MEDS: SYNTHROID 50 MCG PO (08:24)
[2023-08-17] MEDS: ZITHROMAX 500 MG PO (08:24)
[2023-08-17] MEDS: FLOMAX 0.400000000000000022 MG PO (08:24)
[2023-08-17] MEDS: HEPARIN 5000 UNITS SC ×2 (08:25→21:21)
[2023-08-17] MEDS: PROTONIX 20 MG PO (08:25)
[2023-08-17] MEDS: LOW STRENGTH ASPIRIN 81 MG PO (11:37)
[2023-08-17] MEDS: ROCEPHIN 1000 MG IV (11:37)
[2023-08-17] MEDS: STERILE WATER FOR INJECTION 10 ML IV (11:38)
--- NOTE | 2023-08-17 12:57 | W.PN.HOSP.TC ---
Today's Communication/Plan
-
[place] nasal spray
Humidified oxygen
Wean oxygen as able
Discharge planning
Assessment / Plan
Assessment / Plan
Gen-AAOx3, NAD
HEENT-NC, AT, anicteric, clear oral mm, left nasal packing in place
Neck-supple
CV-reg, no M, +S1/S2
Lungs-Rales at bases bilaterally
Abd-soft, NT, ND
Ext-no edema
Musculoskeletal-no cyanosis, clubbing
Skin-warm and dry
Neuro-grossly non-focal
Psych-calm, cooperative
Acute hypoxic respiratory insufficiency -still on 2 L nasal cannula oxygen, wean down as able. Etiology possibly related to left-sided pneumonia. Baseline apparently also has COPD. Chest x-ray shows moderate airspace opacity in the perihilar left
upper and left lower lobes. She sees pulmonary as an outpatient, Dr. Acosta. Not on oxygen at home.
Sepsis -presumably due to left-sided pneumonia. Clinically improving. Continue current antibiotics.. Check sputum culture. Blood cultures negative so far. Lactic acidosis resolved. Bicarbonate improved. Hypothermia resolved. Check urinary
antigens. Check sputum culture.
Left-sided epistaxis -due to oxygen therapy likely. Add humidifier to oxygen. Wean down oxygen. Add saline nasal spray.
TIA -transient dysarthria, resolved. Plavix recently discontinued by cardiology several weeks ago. Brain MRI normal, no signs of stroke.
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 Stopped furosemide, hold antihypertensives. Creatinine coming down, 2.5 today. Tamsulosin started for urinary retention. Appreciate nephrology input.
Right ICA stenosis - greater than 70% on ultrasound May 2023. Vascular surgery consulted. Neurology feels the ICA stenosis is asymptomatic and therefore vascular surgery has decided to follow-up as outpatient.
Hypothyroidism - continue Synthroid.
Macrocytic anemia -subacute to chronic. Etiology unclear, but CKD likely contributing factor. Hemoglobin relatively stable. B12 and folic acid normal. Ferritin normal. Percentage iron saturation low. Recommend outpatient follow-up with
hematology.
Thrombocytopenia -intermittent. Etiology unclear.
CAD/stents/CABG x 5
Chronic combined systolic/diastolic heart failure -stable.
COPD without exacerbation
Hyperlipidemia
TAVR
Pacemaker
Full code
Dispo -anticipate discharge to SNF. Appears medically stable for discharge. Case management and updated.
Anticipated Discharge: 24 - 48 hours
Subjective/Interval History
-
Date of Service: August 17, 2023
Patient seen and examined. Had left-sided nosebleed this morning. No shortness of breath at rest.
Objective Data
-
Labs:
Laboratory Results
08/17/23
05:58
WBC 8.7
Hgb 8.4 L
Hct 27.9 L
Plt Count 111 L
Sodium 138
Potassium 5.1
Chloride 110 H
Carbon Dioxide 25
BUN 52 H
Creatinine 2.5 H
Glucose 102 H
Calcium 8.8
Vital Signs:
Vital Signs
Temp Pulse Resp BP Pulse Ox
97.7 F 72 16 127/65 97
08/17/23 11:00 08/17/23 11:00 08/17/23 11:00 08/17/23 11:00 08/17/23 11:00
I&O
08/16/23 08/17/23 08/18/23
06:59 06:59 06:59
Intake Total 1140 / 1140 551 / 551
Output Total 900 / 900 700 / 700
Balance 240 / 240 -149 / -149
Review of Systems
-
History Source: Patient
All other systems: Reviewed and negative
--- NOTE | 2023-08-17 14:55 | W.PN.NEPH.PH ---
Addendum entered and electronically signed by Graciela Myers MD 08/17/23 15:13:
start IV Fe course , fe sat only 14% and hb low 8.3
bld cxs are negative D2
Original Note:
Today's Communication / Plan
-
likely lasix in am
Assessment/Plan
-
Impression:
Acute kidney injury
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
Hypoxia on admission
sepsis/left PNA
TIA
COPD
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
CAD with stents/CABG
HTN
Gastroesophageal reflux disease
Hyperlipidemia
History of carotid stenosis
Type 2 diabetes mellitus
TIA
Hypothyroidism
Right ICA stenosis
History of TAVR and pacemaker
Plan:
OSVALDO-bland UA
-Likely prerenal in mediated in setting of hypotension with associated sepsis
-PVR 82cc with history of BPH
-Furosemide currently held
cr seem to improve
edema noted today likely resume lasix in am
-
-
Date of Service: August 17, 2023
CC / HPI / ROS
-
Chief Complaint:
OSVALDO with CKD
History of Present Illness:
cr improving to 2.5,
wt slightly up
BP stable
k better at 5.3
Review of Systems:
cough improving
no sob
no cp
Labs
-
Labs:
WBC 8.7 10^3/uL (4.8-10.8) 08/17/23 05:58
RBC 2.67 10^6/uL (4.70-6.10) L 08/17/23 05:58
Hgb 8.4 g/dL (13.0-18.0) L 08/17/23 05:58
Hct 27.9 % (39.0-52.0) L 08/17/23 05:58
Plt Count 111 10^3/uL (130-400) L 08/17/23 05:58
Sodium 138 mmol/L (135-145) 08/17/23 05:58
Potassium 5.1 mmol/L (3.5-5.1) 08/17/23 05:58
Chloride 110 mmol/L (98-107) H 08/17/23 05:58
Carbon Dioxide 25 mmol/L (22-30) 08/17/23 05:58
BUN 52 mg/dl (9-20) H 08/17/23 05:58
Creatinine 2.5 mg/dL (0.7-1.3) H 08/17/23 05:58
eGFR 24.56 08/17/23 05:58
Glucose 102 mg/dl (70-99) H 08/17/23 05:58
Calcium 8.8 mg/dl (8.4-10.2) 08/17/23 05:58
Albumin 2.6 g/dl (3.5-5.0) L 08/15/23 06:24
Physical Exam
-
Vital Signs:
Vital Signs
Temp Pulse Resp BP Pulse Ox
97.7 F 72 16 127/65 97
08/17/23 11:00 08/17/23 11:00 08/17/23 11:00 08/17/23 11:00 08/17/23 11:00
Cardiovascular:: Regular rate and rhythm
Lung Excursion:: Normal (decreased)
Abdomen:: Nontender and Soft
Extremity Edema:: +1: Bilateral:
Sweet Catheter: No
--- NOTE | 2023-08-17 15:38 | VNURNOTE ---
Home Health Liaison met with patient at 1415 to discuss [facility] nurse/therapy, visits, schedule and homebound status. Patient understands that visits at home are limited to 2-3 x per week to assess and teach medical management. He is concerned that he
is weak. Call to patient's to discuss and she stated that she thought patient would benefit from short term stay at rehab prior to coming home.
CM updated.
No [facility] referral made at this time.
[2023-08-17] MEDS: FERRLECIT 110 MG IV (16:24)
--- NOTE | 2023-08-17 16:35 | CM ---
Addendum entered by ELVA Dominguez 08/18/23 15:45:
Received call from Kadie in admissions at [facility] who stated that she will be able to offer a bed for patient tomorrow. No auth will be needed. Placed a call to patient's daughter to update but had to leave a voice mail message.
Placed a call to patient's son, Harvey, to update. He was agreeable to transfer to [facility] tomorrow.
Will call Kadie in admissions in the am.
Addendum entered by ELVA Dominguez 08/18/23 12:35:
Placed a call to patient's who was agreeable to SNF as is patient. They selected: [facility], [place], [place] and [facility]. Will make referrals.
Original Note:
Spoke with attending who stated that patient will need a facility prior to returning home. Will speak to family with SNF options.
Plan: Case management will continue to follow and assist with discharge planning. SNF when stable.
[2023-08-17 19:34] LABS: Cortisol, Random 14.2 ug/dl; TSH 1.03 uIU/ml (0.47-4.68)
[2023-08-17] MEDS: ZETIA 10 MG PO (21:20)
[2023-08-17] MEDS: LIPITOR 10 MG PO (21:21)
[2023-08-18] VITALS (9 sets, daily range): BP systolic 100–135; BP diastolic 50–105; PULSE 76–92; O2SAT 96; BMI 31.0
[2023-08-18 07:17] LABS: Blood Urea Nitrogen 50 mg/dl (9-20); Calcium 9.1 mg/dl (8.4-10.2); Carbon Dioxide 26 mmol/L (22-30); Chloride 108 mmol/L (98-107); Estimated Creatinine Clearance 29 ml/min; Glucose 101 mg/dl (70-99); Potassium 5.4 mmol/L (3.5-5.1); Sodium 139 mmol/L (135-145); eGFR 30.28
[2023-08-18] MEDS: ADVAIR HFA 230/21 MCG INHALER 2 PUFF INH ×2 (07:59→20:32)
[2023-08-18] MEDS: PROTONIX 20 MG PO (08:28)
[2023-08-18] MEDS: HEPARIN 5000 UNITS SC ×2 (08:29→20:57)
[2023-08-18] MEDS: FLOMAX 0.400000000000000022 MG PO (08:29)
[2023-08-18] MEDS: ZITHROMAX 500 MG PO (08:29)
[2023-08-18] MEDS: SYNTHROID 50 MCG PO (08:29)
[2023-08-18] MEDS: LOW STRENGTH ASPIRIN 81 MG PO (08:29)
[2023-08-18] MEDS: CORTROSYN 0.25 MG IV (08:30)
[2023-08-18] MEDS: NSS (PRESERVATIVE FREE) 1 ML IV (08:30)
[2023-08-18 08:56] LABS: ACTH Stim Cortisol 0 Min 17.3 ug/dl
[2023-08-18] MEDS: LASIX 20 MG PO (09:30)
[2023-08-18 11:39] LABS: ACTH Stim Cortisol 60 Min 37.7 ug/dl
[2023-08-18 11:40] LABS: ACTH Stim Cortisol 30 Min 34.2 ug/dl
--- NOTE | 2023-08-18 11:59 | W.PN.HOSP.TC ---
Today's Communication/Plan
-
Add Marinol
Discharge planning
Assessment / Plan
Assessment / Plan
Gen-AAOx3, NAD
HEENT-NC, AT, anicteric, clear oral mm, left nasal packing in place
Neck-supple
CV-reg, no M, +S1/S2
Lungs-Rales at bases bilaterally
Abd-soft, NT, ND
Ext-no edema
Musculoskeletal-no cyanosis, clubbing
Skin-warm and dry
Neuro-grossly non-focal
Psych-calm, cooperative
Acute hypoxic respiratory insufficiency -still on 2 L nasal cannula oxygen, wean down as able. Etiology possibly related to left-sided pneumonia. Baseline apparently also has COPD. Chest x-ray shows moderate airspace opacity in the perihilar left
upper and left lower lobes. She sees pulmonary as an outpatient, Dr. Acosta. Not on oxygen at home.
Sepsis -presumably due to left-sided pneumonia. Clinically improving. Continue current antibiotics. Sputum cx with usual resp jerod. Blood cultures negative so far. Lactic acidosis resolved. Bicarbonate improved. Check urinary antigens.
Recurrent hypothermia -unclear etiology. Suspect related to aging. Thyroid and adrenal function normal.
Left-sided epistaxis -due to oxygen therapy likely. Add humidifier to oxygen. Wean down oxygen. Add saline nasal spray. Discussed with RN.
TIA -transient dysarthria, resolved. Plavix recently discontinued by cardiology several weeks ago. Brain MRI normal, no signs of stroke.
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 Creatinine coming down, 2.1 today (his baseline). Tamsulosin started for urinary retention. Appreciate nephrology input. Lasix resumed.
Right ICA stenosis - greater than 70% on ultrasound May 2023. Vascular surgery consulted. Neurology feels the ICA stenosis is asymptomatic and therefore vascular surgery has decided to follow-up as outpatient.
Hypothyroidism - continue Synthroid.
Macrocytic anemia -subacute to chronic. Etiology unclear, but CKD likely contributing factor. Hemoglobin relatively stable. B12 and folic acid normal. Ferritin normal. Percentage iron saturation low. Recommend outpatient follow-up with
hematology.
Anorexia -unclear etiology. Can try marinol.
Thrombocytopenia -intermittent. Etiology unclear.
CAD/stents/CABG x 5
Chronic combined systolic/diastolic heart failure -stable.
COPD without exacerbation
Hyperlipidemia
TAVR
Pacemaker
Full code
Dispo -anticipate discharge to SNF. Appears medically stable for discharge. Case management and updated.
Anticipated Discharge: Within 24 hours
Subjective/Interval History
-
Date of Service: August 18, 2023
Patient seen/examined. Complaining of anorexia.
Objective Data
-
Labs:
Laboratory Results
08/18/23
06:18
Sodium 139
Potassium 5.4 H
Chloride 108 H
Carbon Dioxide 26
BUN 50 H
Creatinine 2.1 H
Glucose 101 H
Calcium 9.1
Vital Signs:
Vital Signs
Temp Pulse Resp BP Pulse Ox
97.6 F 75 16 135/70 95
08/18/23 07:00 08/18/23 09:30 08/18/23 08:14 08/18/23 09:30 08/18/23 08:14
I&O
08/17/23 08/18/23 08/19/23
06:59 06:59 06:59
Intake Total 551 / 551 240 / 240
Output Total 700 / 700 600 / 600
Balance -149 / -149 -360 / -360
Review of Systems
-
History Source: Patient
All other systems: Reviewed and negative
--- NOTE | 2023-08-18 12:45 | PTOTSP ---
ST Follow-Up
Pt presents with mild pharyngeal dysphagia characterized by change in vocal quality and throat clearing with sequential sips of thin liquids.
Recommendations:
- Regular solids, thin liquids, meds as tolerated.
- Single sips; HOB upright during and 1 hour after meals.
- Continue to follow to determine if instrumental swallow study is necessary while in patient; if not, f/u as OP.
[2023-08-18] MEDS: ROCEPHIN 1000 MG IV (13:03)
[2023-08-18] MEDS: STERILE WATER FOR INJECTION 10 ML IV (13:04)
[2023-08-18] MEDS: FERRLECIT 110 MG IV (13:33)
--- NOTE | 2023-08-18 15:21 | W.PN.NEPH.PH ---
Today's Communication / Plan
-
resumed lasix, 40mg today
resume home dose at d/c
Assessment/Plan
-
Impression:
Acute kidney injury
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
Hypoxia on admission
sepsis/left PNA
TIA
COPD
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
CAD with stents/CABG
HTN
Gastroesophageal reflux disease
Hyperlipidemia
History of carotid stenosis
Type 2 diabetes mellitus
TIA
Hypothyroidism
Right ICA stenosis
History of TAVR and pacemaker
Plan:
OSVALDO-bland UA
-Likely prerenal in mediated in setting of hypotension with associated sepsis
-PVR 82cc with history of BPH
cr close to baseline
resume lasix as he has edema
labs in am
-
-
Date of Service: August 18, 2023
CC / HPI / ROS
-
Chief Complaint:
OSVALDO with CKD
History of Present Illness:
cr improving to 2.1
wt no change
BP stable
k better at 5.4
Review of Systems:
cough improving
no sob
no cp
Labs
-
Labs:
WBC 8.7 10^3/uL (4.8-10.8) 08/17/23 05:58
RBC 2.67 10^6/uL (4.70-6.10) L 08/17/23 05:58
Hgb 8.4 g/dL (13.0-18.0) L 08/17/23 05:58
Hct 27.9 % (39.0-52.0) L 08/17/23 05:58
Plt Count 111 10^3/uL (130-400) L 08/17/23 05:58
Sodium 139 mmol/L (135-145) 08/18/23 06:18
Potassium 5.4 mmol/L (3.5-5.1) H 08/18/23 06:18
Chloride 108 mmol/L (98-107) H 08/18/23 06:18
Carbon Dioxide 26 mmol/L (22-30) 08/18/23 06:18
BUN 50 mg/dl (9-20) H 08/18/23 06:18
Creatinine 2.1 mg/dL (0.7-1.3) H 08/18/23 06:18
eGFR 30.28 08/18/23 06:18
Glucose 101 mg/dl (70-99) H 08/18/23 06:18
Calcium 9.1 mg/dl (8.4-10.2) 08/18/23 06:18
Albumin 2.6 g/dl (3.5-5.0) L 08/15/23 06:24
Physical Exam
-
Vital Signs:
Vital Signs
Temp Pulse Resp BP Pulse Ox
97.3 F 78 18 124/63 91
08/18/23 12:00 08/18/23 12:00 08/18/23 12:00 08/18/23 12:00 08/18/23 12:00
Cardiovascular:: Regular rate and rhythm
Respiratory:: Bilateral: Rales (at bases)
Lung Excursion:: Normal
Abdomen:: Nontender and Soft
Extremity Edema:: +1: Bilateral:
Sweet Catheter: No
[2023-08-18] MEDS: LASIX 20 MG IV (16:37)
[2023-08-18] MEDS: LIPITOR 10 MG PO (20:57)
[2023-08-18] MEDS: MARINOL 2.5 MG PO (20:57)
[2023-08-18] MEDS: ZETIA 10 MG PO (20:57)
[2023-08-19 06:00] VITALS: BMI 30.5
[2023-08-19 07:00] VITALS: BP 124/64
[2023-08-19 07:18] LABS: Blood Urea Nitrogen 53 mg/dl (9-20); Calcium 8.7 mg/dl (8.4-10.2); Carbon Dioxide 25 mmol/L (22-30); Chloride 108 mmol/L (98-107); Estimated Creatinine Clearance 29 ml/min; Glucose 88 mg/dl (70-99); Potassium 4.4 mmol/L (3.5-5.1); Sodium 139 mmol/L (135-145); eGFR 30.28
[2023-08-19] MEDS: FLOMAX 0.400000000000000022 MG PO (07:53)
[2023-08-19] MEDS: LOW STRENGTH ASPIRIN 81 MG PO (07:53)
[2023-08-19] MEDS: HEPARIN 5000 UNITS SC (07:53)
[2023-08-19] MEDS: PROTONIX 20 MG PO (07:53)
[2023-08-19] MEDS: SYNTHROID 50 MCG PO (07:53)
[2023-08-19] MEDS: ZITHROMAX 500 MG PO (07:53)
[2023-08-19] MEDS: LASIX 20 MG PO (07:56)
[2023-08-19] MEDS: ADVAIR HFA 230/21 MCG INHALER 2 PUFF INH ×2 (08:20→19:32)
--- NOTE | 2023-08-19 09:32 | W.PN.HOSP.TC ---
Today's Communication/Plan
-
Stable for discharge
Assessment / Plan
Assessment / Plan
Gen-AAOx3, NAD
HEENT-NC, AT, anicteric, clear oral mm
Neck-supple
CV-reg, no M, +S1/S2
Lungs-Rales at bases bilaterally
Abd-soft, NT, ND
Ext-no edema
Musculoskeletal-no cyanosis, clubbing
Skin-warm and dry
Neuro-grossly non-focal
Psych-calm, cooperative
Acute hypoxic respiratory insufficiency -oxygenation improved, now on room air. Etiology possibly related to left-sided pneumonia. Baseline apparently also has COPD. Chest x-ray shows moderate airspace opacity in the perihilar left upper and left
lower lobes. She sees pulmonary as an outpatient, Dr. Acosta. Not on oxygen at home.
Sepsis -presumably due to left-sided pneumonia. Sepsis resolved. Clinically improving. Continue current antibiotics. Sputum cx with usual resp jerod. Blood cultures negative so far. Lactic acidosis resolved. Bicarbonate improved.
Recurrent hypothermia -unclear etiology. Suspect related to aging. Thyroid and adrenal function normal.
Left-sided epistaxis -due to oxygen therapy likely. Epistaxis resolved.
TIA -transient dysarthria, resolved. Plavix recently discontinued by cardiology several weeks ago. Brain MRI normal, no signs of stroke.
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 Creatinine coming down, 2.1 today (his baseline). Tamsulosin started for urinary retention. Appreciate nephrology input. Lasix resumed.
Right ICA stenosis - greater than 70% on ultrasound May 2023. Vascular surgery consulted. Neurology feels the ICA stenosis is asymptomatic and therefore vascular surgery has decided to follow-up as outpatient.
Hypothyroidism - continue Synthroid.
Macrocytic anemia -subacute to chronic. Etiology unclear, but CKD likely contributing factor. Hemoglobin relatively stable. B12 and folic acid normal. Ferritin normal. Percentage iron saturation low. Recommend outpatient follow-up with
hematology.
Anorexia -unclear etiology. Continue Marinol.
Thrombocytopenia -intermittent. Etiology unclear.
CAD/stents/CABG x 5
Chronic combined systolic/diastolic heart failure -stable.
COPD without exacerbation
Hyperlipidemia
TAVR
Pacemaker
Full code
Dispo -anticipate discharge to SNF. Appears medically stable for discharge. Case management and updated.
Anticipated Discharge: Today
Subjective/Interval History
-
Date of Service: August 19, 2023
Patient seen and examined. No complaints. About to eat breakfast.
Objective Data
-
Labs:
Laboratory Results
08/19/23
06:17
Sodium 139
Potassium 4.4
Chloride 108 H
Carbon Dioxide 25
BUN 53 H
Creatinine 2.1 H
Glucose 88
Calcium 8.7
Vital Signs:
Vital Signs
Temp Pulse Resp BP Pulse Ox
97.5 F 77 17 124/64 94
08/19/23 07:00 08/19/23 07:00 08/19/23 07:00 08/19/23 07:00 08/19/23 07:00
I&O
08/18/23 08/19/23 08/20/23
06:59 06:59 06:59
Intake Total 240 / 240 1440 / 1440
Output Total 600 / 600 720 / 720
Balance -360 / -360 720 / 720
Review of Systems
-
History Source: Patient
All other systems: Reviewed and negative
[2023-08-19 10:56] VITALS: BP 104/51; BP 119/61; BP 128/64; PULSE 103; PULSE 93; PULSE 95
[2023-08-19] MEDS: ROCEPHIN 1000 MG IV (11:47)
[2023-08-19] MEDS: STERILE WATER FOR INJECTION 10 ML IV (11:47)
--- NOTE | 2023-08-19 11:58 | CM ---
Addendum entered by ELVA Dominguez 08/19/23 15:09:
Daughter updated and agreeable to IMM.
Addendum entered by ELVA Dominguez 08/19/23 14:05:
Received return call from Kadie who confirmed ability to accept patient today. Medical necessity and transfer sheet provided to [employer] unit installer who stated that she will set patient up for transfer. Request was made for Covid test.
#For report [phone]
Original Note:
Received voice mail message from patient's . Reviewed chart, patient medically cleared for discharge. Placed a call to [facility] to confirm bed availability. Left a message for Kadie in admissions and requested return call. Placed a call to
Patient's to update that once return call has been received from [facility], CM will update her. If no return call has been received by [facility], will again.
Plan: Case management will continue to follow and assist with discharge planning. Transfer to [facility] once confirmation of bed availability if obtained.
--- NOTE | 2023-08-19 12:01 | W.PN.NEPH.PH ---
Today's Communication / Plan
-
sgin off
Assessment/Plan
-
Impression:
Acute kidney injury
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
Hypoxia on admission
sepsis/left PNA
TIA
COPD
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
CAD with stents/CABG
HTN
Gastroesophageal reflux disease
Hyperlipidemia
History of carotid stenosis
Type 2 diabetes mellitus
TIA
Hypothyroidism
Right ICA stenosis
History of TAVR and pacemaker
Plan:
OSVALDO-bland UA
-creatinine now at baseline 2.1
-Likely prerenal in mediated in setting of hypotension with associated sepsis
-PVR 82cc with history of BPH
cr close to baseline
resumes lasix as he has edema
labs in am
we will sign off
-
-
Date of Service: August 19, 2023
CC / HPI / ROS
-
Chief Complaint:
OSVALDO with CKD
History of Present Illness:
cr improving to 2.1
wt no change
BP stable
k better at 4.4
Review of Systems:
cough improving
no sob
no cp
Labs
-
Labs:
WBC 8.7 10^3/uL (4.8-10.8) 08/17/23 05:58
RBC 2.67 10^6/uL (4.70-6.10) L 08/17/23 05:58
Hgb 8.4 g/dL (13.0-18.0) L 08/17/23 05:58
Hct 27.9 % (39.0-52.0) L 08/17/23 05:58
Plt Count 111 10^3/uL (130-400) L 08/17/23 05:58
Sodium 139 mmol/L (135-145) 08/19/23 06:17
Potassium 4.4 mmol/L (3.5-5.1) 08/19/23 06:17
Chloride 108 mmol/L (98-107) H 08/19/23 06:17
Carbon Dioxide 25 mmol/L (22-30) 08/19/23 06:17
BUN 53 mg/dl (9-20) H 08/19/23 06:17
Creatinine 2.1 mg/dL (0.7-1.3) H 08/19/23 06:17
eGFR 30.28 08/19/23 06:17
Glucose 88 mg/dl (70-99) 08/19/23 06:17
Calcium 8.7 mg/dl (8.4-10.2) 08/19/23 06:17
Albumin 2.6 g/dl (3.5-5.0) L 08/15/23 06:24
Physical Exam
-
Vital Signs:
Vital Signs
Temp Pulse Resp BP Pulse Ox
97.5 F 85 16 124/64 91
08/19/23 07:00 08/19/23 08:20 08/19/23 08:20 08/19/23 07:00 08/19/23 08:20
Cardiovascular:: Regular rate and rhythm
Respiratory:: Bilateral: CTA
Abdomen:: Nontender and Soft
Bowel Sounds:: Normal
Extremity Edema:: None: Bilateral:
Sweet Catheter: No
[2023-08-19] MEDS: FERRLECIT 110 MG IV (13:33)
--- NOTE | 2023-08-19 14:04 | W.DS.TRANS ---
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
-
Discharge Instructions:
Discharge Diagnosis/Procedures Sepsis, pneumonia, TIA, acute kidney injury,
chronic kidney disease 3B
Diet 2 Gram Sodium,Low Cholesterol,Low Fat
Activity With assistance
Driving Restrictions No driving
Bathing Restrictions None
Instructions:
Stand-Alone Forms:
Changes to Home Medications: No
Discharge Medications:
DC Medications w/original date entered in [facility]
ezetimibe 10 mg tablet 10 mg PO HS High cholesterol 03/26/21
aspirin 81 mg tablet,delayed release 81 mg PO HS Blood clot prevention/tx ##0 03/27/21
docusate sodium 100 mg capsule 100 mg PO DAILY Constipation 02/19/23
famotidine 20 mg tablet 20 mg PO DAILY Gastrointestinal Issue 02/19/23
isosorbide mononitrate 30 mg tablet,extended release 24 hr 30 mg PO DAILY Heart Disease/Condition 02/19/23
fluticasone propionate 230 mcg-salmeterol 21 mcg/actuation HFA inhaler (Advair HFA) 2 puff inhalation R BID Lung/Breathing Issues 06/08/23
levothyroxine 50 mcg tablet (Synthroid) 50 mcg PO MOTUWETHFRSA@0800 Thyroid 06/08/23
levothyroxine 50 mcg tablet (Synthroid) 100 mcg PO CHAVEZ@0800 Thyroid 06/08/23
atorvastatin 20 mg tablet 10 mg PO HS High Cholesterol 08/14/23
metoprolol succinate 25 mg tablet,extended release 24 hr 25 mg PO DAILY Heart disease/condition 08/14/23
pantoprazole 20 mg tablet,delayed release 20 mg PO DAILY Gastrointestinal Issue 08/14/23
peg 400-propylene glycol (PF) 0.4 %-0.3 % eye drops in a dropperette (Systane (PF)) 1 drp BOTH EYES DAILYPRN PRN dry eyes 08/14/23
cefpodoxime 200 mg tablet 200 mg PO DAILY #2 tabs 08/19/23
dronabinol 2.5 mg capsule 2.5 mg PO HS #0 caps 08/19/23
furosemide 20 mg tablet 20 mg PO DAILY #0 tabs 08/19/23
sodium chloride 0.65 % nasal spray aerosol (Saline Nasal) 2 sprays intranasal QIDPRN PRN dry nose #0 mL 08/19/23
tamsulosin 0.4 mg capsule 0.4 mg PO DAILY #0 caps 08/19/23
Home Medication Changes
Pending Results: No
[2023-08-19 14:37] LABS: COVID-19 Antigen Negative (Negative)
[2023-08-19 15:30] VITALS: BP 127/66
--- NOTE | 2023-08-19 17:59 | PTCARENOTE ---
Called [facility] @ 1800 to give report. Report given to supervisor litharge
--- NOTE | 2023-08-19 20:00 | PTCARENOTE ---
pt picked up by acute care to transfer to [facility]. Pt in stable condition, dc papers given to transport.
== END 2023-08-19 20:09 | DRG 871 ==
LOC: 3 WEST ACU 21:08
PROVIDERS: Nurse Practitioner; ADMITTING PHYSICIAN Internal Medicine; ATTENDING PHYSICIAN Hospitalist; CONSULT PHYSICIAN Specialist; EMERGENCY PHYSICIAN Emergency Medicine; FAMILY PHYSICIAN Family Medicine; OTHER PHYSICIAN Nurse Practitioner Acute Care; OTHER PHYSICIAN Psychiatry & Neurology Neurology
DX: A41.9 Sepsis, unspecified organism (principal); I63.9 Cerebral infarction, unspecified; J18.9 Pneumonia, unspecified organism; E87.20 Acidosis, unspecified; N17.9 Acute kidney failure, unspecified; N18.4 Chronic kidney disease, stage 4 (severe); I50.42 Chronic combined systolic (congestive) and diastolic (congestive) heart failure; I13.0 Hypertensive heart and chronic kidney disease with heart failure and stage 1 through stage 4 chronic kidney disease, or unspecified chronic kidney disease; G45.9 Transient cerebral ischemic attack, unspecified; R65.20 Severe sepsis without septic shock; N18.32 Chronic kidney disease, stage 3b; R04.0 Epistaxis
CPT/HCPCS: 70450; 70551; 71046; 80048; 80053; 80061; 80202; 81003; 82533; 82607; 82728; 82746; 83540; 83550; 83605; 84443; 84484; 85025; 85027; 85045; 87040; 87070; 87205; 87811; 92526; 92610; 93005; 94640; 95816; 96361; 96374; 96375; 97116; 97129; 97162; 97166; 97530; 99285; J2916

== ENCOUNTER 2023-08-25 09:52 | Emergency (ER) | payer MEDICARE, BC, SELFPAY ==
[2023-08-25 10:05] VITALS: BP 70/40
[2023-08-25 10:24] LABS: % Basophils 0.4 % (0-2); % Eosinophils 1.2 % (0-6); % Immature Granulocytes 2.5 % (0-0.5); % Monocytes 8.7 % (1.7-9.3); % Neutrophils 43.2 % (42.2-75.2); Absolute Basophils 0.1 10^3/uL (0-0.2); Absolute Eosinophils 0.2 10^3/uL (0-0.7); Absolute Immature Granulocytes 0.3 10^3/uL (0-0.05); Absolute Monocytes 1.2 10^3/uL (0.1-0.6); Absolute Neutrophils 5.9 10^3/uL (1.4-6.5); Hematocrit 31.1 % (39.0-52.0); Hemoglobin 9.1 g/dL (13.0-18.0); Mean Corp Hgb Conc. 29.3 g/dL (33.0-37.0); Mean Corpuscular Hgb 31.7 pg (27.0-31.0); Mean Corpuscular Volume 108.4 fL (80.0-94.0); Mean Platelet Volume 13.2 fL (7.4-10.4); Nucleated Red Blood Cells % 2.6 % (-); Platelet Count 118 10^3/uL (130-400); Red Blood Cell Count 2.87 10^6/uL (4.70-6.10); Red Cell Dist. Width 18.5 % (11.5-14.5); White Blood Cell Count 13.7 10^3/uL (4.8-10.8)
--- NOTE | 2023-08-25 10:28 | ED.GENMED ---
Addendum entered and electronically signed by Elpidio Salgado MD 08/25/23 12:22:
Time of 10:21 AM
Original Note:
History of Present Illness
General
Chief Complaint: CODE
Source: family and ambulance crew
Exam Limitations: clinical condition
Time Seen by Provider: 08/25/23 09:56
Travel History
Have you had any contact with someone who has COVID-19?: Unable to Answer
Do you have any symptoms of coronavirus? Fever > 100 degrees, chills, cough, shortness of breath, sore throat, loss of taste or smell, muscle aches, or headache?: Unable to Answer
History of Present Illness
History of Present Illness:
83-year-old male cardiac arrest outside of our emergency department. Ambulance was called from the nursing facility for a staring spell. However medics stated he was alert and speaking on their arrival. Went into cardiac arrest on arrival to our
ER in the ambulance bay. PEA. No pulses. Patient was being bagged as he came into the ER.
Past History
Past History
ED Past Medical History: Arrthythmia (Exercise-induced V. tach), CAD, CHF, GERD, HTN, Hypercholesterolemia, NIDDM, Hypothyroidism and Other (Multiple pulmonary nodules, moderate obstructive sleep apnea, right internal carotid artery 70% stenosis);
Negative Renal failure (Stage 3A)
ED Past Surgical History: Cardiac (Pacemaker, CABG X 4, Stents, TAVR), Tonsilectomy and Other
Social History
Tobacco: Non-smoker
Alcohol: None
Drug: None
Personal:
Living: with family
Family History
Family History: Other (reviewed and non-contributory)
Review of Systems
Review of Systems
Unable to obtain full review of systems at this time due to: due to acuity
All Other Systems: Not applicable
Phy Exam
Physical Exam
Physical Exam:
CODE EXAM:
VITAL SIGNS: No palpable blood pressure, no pulses, no respiration.
GENERAL EXAM: Mottled
EYES: Pupils fixed
ENT: Patient intubated
NECK: No venous distention
RESPIRATORY: Equal breath sounds
CARDIAC: Absent heart sounds
VASCULAR: Absent pulses
ABDOMEN: Soft no masses. Areas of ecchymosis diffusely across the lower abdominal wall
GUAIAC: Not done
MUSCULOSKELETAL: Unable to evaluate strength
EXTREMITIES: No edema or contractures
SKIN: No rash
PSYCH: Mood, affect unable to evaluate
Course
Orders/Labs/Results
Orders:
Orders
08/25/23 10:11
IV Insert/Care/Rem.- Treatment PRN
Pulse Ox/cont/shift [RESP] Stat
Quantity: 1
08/25/23 10:12
Electrocardiogram (*1) Stat
Reason for Study: Other
Other Reason for Exam: chest pain
Cardiac Monitoring- Treatment ONCE
EKG- Treatment ONCE
08/25/23 10:13
Basic Metabolic Panel Urgent
Complete Blood Count/With Diff Urgent
Comprehensive Metabolic Panel Urgent
Lactic Acid Urgent
PTT Urgent
Prothrombin Time Urgent
Troponin I Urgent
08/25/23 10:14
EPINEPHrine [Adrenalin 1 mg/10 ml] 3 mg .ROUTE .STK-MED ONE
08/25/23 10:15
EPINEPHrine 4 mg/250 mL NSS [Adrenalin] 4 mg in 250 ml .ROUTE .STK-MED
Abnormal Lab Results
08/25/23
10:13
WBC 13.7 H 10^3/uL
(4.8-10.8)
RBC 2.87 L 10^6/uL
(4.70-6.10)
Hgb 9.1 L g/dL
(13.0-18.0)
Hct 31.1 L %
(39.0-52.0)
MCV 108.4 H fL
(80.0-94.0)
MCH 31.7 H pg
(27.0-31.0)
MCHC 29.3 L g/dL
(33.0-37.0)
RDW 18.5 H %
(11.5-14.5)
Plt Count 118 L 10^3/uL
(130-400)
MPV 13.2 H fL
(7.4-10.4)
Abs Immat Gran (auto) 0.3 H 10^3/uL
(0-0.05)
Absolute Lymphs (auto) 6.0 H 10^3/uL
(1.2-3.4)
Absolute Monos (auto) 1.2 H 10^3/uL
(0.1-0.6)
Immature Gran % 2.5 H %
(0-0.5)
APTT 41.8 H Sec
(23.4-35.0)
BUN 86 H mg/dl
(9-20)
Creatinine 2.9 H mg/dL
(0.7-1.3)
Glucose 149 H mg/dl
(70-99)
Lactic Acid 3.3 H mmol/L
(0.7-2.0)
AST 95 H U/L
(17-59)
ALT 111 H U/L
(0-50)
Alkaline Phosphatase 140 H U/L
(38-126)
Troponin I 2.610 H* ng/ml
Total Protein 6.2 L g/dl
(6.3-8.2)
Albumin 3.2 L g/dl
(3.5-5.0)
08/25/23 10:13
08/25/23 10:13
Vital Signs
Initial and Last Documented VS:
Initial Vital Signs
Pulse Resp BP Pulse Ox
102 12 70/40 21
08/25/23 10:05 08/25/23 10:05 08/25/23 10:05 08/25/23 10:05
Last Documented Vital Signs
Pulse Resp BP Pulse Ox
102 12 70/40 21
08/25/23 10:05 08/25/23 10:05 08/25/23 10:05 08/25/23 10:05
Procedures
Intubations
Procedure completed by: Myself
Method of Intubation: glidescope
Tube size (cm): 7.5
Placement confirmed by: auscutation, capnography and direct visualization
Breath sounds after intubation: equal
Intubation complications: no complications
*High Density Press Laborer Interpretation
Rate: normal
Interpretation: normal
Heart Rate: 80
Rhythm: other (Atrial paced)
*Critical Care Note
Total Time (30-74mins, 75-104mins- exclusive of procedures): 40
Data Reviewed
Review of Other/Old Records Reveals: Labs, Records, Testing and Discharge Summary
Update Note
Update Note:
30 minutes of PEA. Briefly had a pulse with about 4 epinephrines in. However this digressed quickly to being pulseless again. No neurologic findings. Corneas fixed. No corneal reflex. Discussed with the after 30 minutes. Code was called.
Hose Stripper notified. 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 Appreciate our cardiology input and help
ED Attending Note
-
Portions of this chart may have been created with voice recognition software.� Occasional wrong word or��sound alike� substitutions may have occurred due to the inherent limitations of voice recognition software.
Discharge Plan
Departure
Patient Disposition:
Date of Disposition: 08/25/23
Time of Disposition: 10:39
Discharge Problem:
Cardiopulmonary arrest
Prescriptions:
No Action
ezetimibe 10 MG tablet
10 mg PO HS
aspirin 81 MG tablet,delayed release (DR/EC)
81 mg PO HS Qty: 0 0RF
isosorbide mononitrate 30 mg Tablet Extended Release 24 Hr
30 mg PO DAILY
famotidine 20 mg Tablet
20 mg PO DAILY
docusate sodium 100 mg Capsule
100 mg PO DAILY
levothyroxine [Synthroid] 50 mcg tablet
100 mcg PO CHAVEZ@0800
levothyroxine [Synthroid] 50 mcg tablet
50 mcg PO MOTUWETHFRSA@0800
fluticasone propion-salmeterol [Advair HFA] 230-21 mcg/actuation HFA aerosol inhaler
2 puff inhalation R BID
atorvastatin 20 mg Tablet
10 mg PO HS
pantoprazole 20 mg Tablet,Delayed Release (Dr/Ec)
20 mg PO DAILY
Systane (PF) 0.4-0.3 % Dropperette
1 drp BOTH EYES DAILYPRN PRN (Reason: dry eyes)
metoprolol succinate 25 MG tablet extended release 24 hr
25 mg PO DAILY
dronabinol 2.5 mg Capsule
2.5 mg PO HS Qty: 0 0RF
tamsulosin 0.4 mg Capsule
0.4 mg PO DAILY Qty: 0 0RF
furosemide 20 mg Tablet
20 mg PO DAILY Qty: 0 0RF
Saline Nasal 0.65 % Aerosol,[place]
2 sprays intranasal QIDPRN PRN (Reason: dry nose) Qty: 0 0RF
cefpodoxime 200 mg tablet
200 mg PO DAILY Qty: 2 0RF
Rx Instructions:
last day 08/20
Interventions
Interventions:
*Risk Screen - Suicide Last Done: 08/25/23 10:05
*General Assessment Last Done: 08/25/23 10:05
*Neglect/Abuse Screening Last Done: 08/25/23 10:05
ED- Fall Risk Assessment Last Done: 08/25/23 11:36
*ED COVID-19 Vaccine History Last Done: 08/25/23 11:36
*Nursing Disposition Last Done: 08/25/23 11:36
ED- Cardiac Assessment Last Done: 08/25/23 11:38
ED- Pulmonary Assessment Last Done: 08/25/23 11:34
Discharge Date and Time
Print Language: YI
[2023-08-25 10:35] LABS: Lactic Acid 3.3 mmol/L (0.7-2.0)
[2023-08-25 10:39] LABS: INR 1.13; PT 14.5 Sec (11.4-14.6)
[2023-08-25 10:40] LABS: APTT 41.8 Sec (23.4-35.0)
[2023-08-25 10:42] LABS: ALT (SGPT) 111 U/L (0-50); AST (SGOT) 95 U/L (17-59); Albumin 3.2 g/dl (3.5-5.0); Alkaline Phosphatase 140 U/L (38-126); Blood Urea Nitrogen 86 mg/dl (9-20); Calcium 8.5 mg/dl (8.4-10.2); Carbon Dioxide 23 mmol/L (22-30); Chloride 106 mmol/L (98-107); Glucose 149 mg/dl (70-99); Sodium 136 mmol/L (135-145); Total Bilirubin 0.5 mg/dl (0.2-1.3); Total Protein 6.2 g/dl (6.3-8.2); eGFR 20.55
--- NOTE | 2023-08-25 10:55 | EDRN ---
Pt. arrived at 0952. Pt. was sent in for 'staring off into space.' Pt. had another episode of staring as the pulled into the hospital and then had witnessed cardiac arrest. PEA. 1 epi given by EMS. Pt brought into ED40, Dr. Salgado at beside. CPR
continued. ROSC was achieved @ 1006. CRP resumed @ 1009. Cardiology did come down to assist with code. Multiple epis given, documented on code sheet. Time of called by Dr. Salgado at 1021 after talking with family.
Pt. cleaned up and made presentable for family. Family brought to bedside.
[facility] contacted, not a candidate.
== END 2023-08-25 11:38 | disposition expired ==
LOC: EMR 09:52
PROVIDERS: EMERGENCY PHYSICIAN Emergency Medicine
DX: I46.9 Cardiac arrest, cause unspecified (principal); I25.10 Atherosclerotic heart disease of native coronary artery without angina pectoris; I11.0 Hypertensive heart disease with heart failure; I50.9 Heart failure, unspecified; K21.9 Gastro-esophageal reflux disease without esophagitis; E78.00 Pure hypercholesterolemia, unspecified; E11.9 Type 2 diabetes mellitus without complications; E03.9 Hypothyroidism, unspecified; G47.33 Obstructive sleep apnea (adult) (pediatric); Z95.0 Presence of cardiac pacemaker; Z95.1 Presence of aortocoronary bypass graft; Z95.5 Presence of coronary angioplasty implant and graft
CPT/HCPCS: 99291; 31500; 80048; 80053; 83605; 84484; 85025; 85610; 85730; 93005